=== PATIENT | male | born 1945 | race Caucasian/White ===

== ENCOUNTER 2019-10-23 08:24 | Day surgery (SDC) | payer MEDICARE, OTHER, SELFPAY ==
[2019-10-22 12:36] VITALS: BMI 23.5
--- NOTE | 2019-10-23 09:07 | P.HP_ITS ---
Same Day Surgery H&P Indication for Procedure/HPI DATE OF PROCEDURE: October 23, 2019 CHIEF COMPLAINT/INDICATIONFOR SURGICAL PROCEDURE: History of rectal cancer PREOP DIAGNOSIS: History of rectal PLANNED PROCEDRUE: Operation Date: 10/23/19 10:00 Proposed Procedures p Colonoscopy(Not Applicable) - Daniel Porter MD Medications/Allergies* Home Medications Medication Instructions Recorded Confirmed Type amlodipine 10 mg PO DAILY 10/22/19 10/22/19 History aspirin 81 mg PO DAILY 10/22/19 10/22/19 History carvedilol 6.25 mg PO BID 10/22/19 10/22/19 History citalopram 10 mg PO DAILY 10/22/19 10/22/19 History lisinopril 20 mg PO DAILY 10/22/19 10/22/19 History lovastatin 10 mg PO DAILY 10/22/19 10/22/19 History mecobal-levomefolat Ca-B6 phos 1 tab PO DAILY 10/22/19 10/22/19 History [[id number]] pentoxifylline 400 mg PO TID 10/22/19 10/22/19 History tramadol 50 mg PO DAILY 10/22/19 10/23/19 History Allergies/Adverse Reactions Allergy/AdvReac Type Severity Reaction Status Date / Time No Known Allergies Allergy Unverified 08/27/19 11:55 Pertinent Exam Findings alert, oriented x 3, clear to auscultation bilaterally, regular rate & rhythm, operative site marked and procedure specific exam findings Recommendations Surgery/Procedure today Coding Level of Care Code Acute Rehab/Pre Vocational Counselor for Breonna Leach
--- NOTE | 2019-10-23 09:14 | ANES.PREANE2 ---
Pre-Anesthetic Assessment Pre-Anesthetic Assessment: Height/Weight: Height 1.8 m Weight 76.374 kg Preop Diagnosis: History of rectal CA Proposed Procedure: Operation Date: 10/23/19 10:00 Proposed Procedures p Colonoscopy(Not Applicable) - Daniel Porter MD Was Beta Jonathan taken within 24 hours: Yes Last intake: 06:30 Last Intake: 20:00 Social: Packs per day: 1 Pack years: 60 Exam: Pre-Anes Outpt Exam: alert, oriented x 3, clear to auscultation bilaterally and regular rate & rhythm Airway: Submandibular: WNL Cervical ROM: WNL MP: 1 CV/HEM: CV/HEM: HTN Comments: rx'd x 42 2 Blocks/2 FOS without angina/IRWIN : : Chronic renal Insufficiency Comments: stage 3 Musc/skel: Musc/skel: Lower Back Pain Comments: bilateral radiculopathy Anesthetic Plan: ASA status: 3 Anesthesia: MAC Data Anesthesia Cardiac Studies: No Data to Display
[2019-10-23 10:10] VITALS: BP 144/77; PULSE 78; RESP 18; TEMP 36.4; O2SAT 98
[2019-10-23] MEDS: sodium chloride 0.9% 1,000 ML 30 ML (10:11)
[2019-10-23 10:45] VITALS: BP 109/55; PULSE 67; RESP 18; TEMP 36.6; O2SAT 99
[2019-10-23 10:53] VITALS: BP 132/76; PULSE 72; RESP 16; TEMP 36.8; O2SAT 98
== END 2019-10-23 11:20 | disposition home or self-care (01) ==
PROVIDERS: Family Provider Nurse Practitioner Family; PCP Nurse Practitioner Family; Visit Provider Internal Medicine
PROC: 0DJD8ZZ Inspection of Lower Intestinal Tract, Via Natural or Artificial Opening Endoscopic (ICD-10-PCS; CPT 45378; principal; 2019-10-23 10:00)
DX: Z85.048 Personal history of other malignant neoplasm of rectum, rectosigmoid junction, and anus (principal); F17.210 Nicotine dependence, cigarettes, uncomplicated; I10 Essential (primary) hypertension
CPT/HCPCS: 12345; 45378; J2704; J7030

== ENCOUNTER 2019-12-15 13:05 | Outpatient (CLI) | payer MEDICARE, OTHER, SELFPAY ==
[2019-12-15 17:06] LABS: Basophils % 0.6 %; Eosinophils # 0.2 10^3/uL (0.0-0.8); Eosinophils % 3.4 %; Hematocrit 32.7 % (42.0-52.0); Hemoglobin 10.7 g/dL (11.7-16.6); Lymphocytes # 1.7 10^3/uL (0.8-4.8); Lymphocytes % 24.9 %; Mean Corpuscular HGB Conc 32.7 g/dL (30.0-36.0); Mean Corpuscular Hemoglobin 34.4 pg (28.0-34.0); Mean Corpuscular Volume 105.1 fL (80-94); Mean Platelet Volume 10.1 fL (7.4-10.4); Monocytes # 0.8 10^3/uL (0.2-0.9); Monocytes % 11.8 %; Neutrophils # 4.1 10^3/uL (1.8-7.7); Neutrophils % 59.2 %; Nucleated Red Blood Cells % 0 %; Platelet Count 179 10^3/cmm (130-400); Red Blood Count 3.11 10^6/uL (4.1-5.3); Red Cell Distribution Width 13.4 % (12.1-15.1); White Blood Count 6.9 10^3/uL (4.0-10.0)
[2019-12-15 23:19] LABS: Alanine Aminotransferase 12 U/L (0-41); Albumin Level 3.9 g/dL (3.5-5.2); Alkaline Phosphatase 63 IU/L (40-130); Anion Gap 18.4 (5-19); Aspartate Amino Transferase 16 U/L (0-40); Blood Urea Nitrogen 27 mg/dL (8-23); Calcium 9.6 mg/dL (8.5-10.5); Carbon Dioxide 22 mmol/L (22-29); Chloride 106 mmol/L (98-107); Globulin 3.2 g/dL (1.3-4.6); Glucose 66 mg/dL (65-115); Osmolality Calculated 289 mOsm/kg (285-295); Potassium 4.4 mmol/L (3.5-5.1); Sodium 142 mmol/L (136-145); Total Bilirubin 0.2 mg/dL (0.15-1.2); Total Protein 7.1 g/dL (6.6-8.7)
[2019-12-16 03:06] LABS: Carcinoembryonic Antigen 1.5 ng/mL (0.0-4.7)
== END 2019-12-15 13:06 | disposition home or self-care (01) ==
LOC: ONCMED 15:53
PROVIDERS: Family Provider Nurse Practitioner Family; PCP Nurse Practitioner Family; Visit Provider Internal Medicine Medical Oncology
DX: C20 Malignant neoplasm of rectum (principal)
CPT/HCPCS: 36415; 80053; 82378; 85025

== ENCOUNTER 2020-02-09 13:23 | Outpatient (CLI) | payer MEDICARE, OTHER, SELFPAY ==
--- NOTE | 2020-02-12 18:17 | ONC FU_ITS ---
Dr. Hernandez Patient Follow-Up Note Patient: Kayode Mcqueen V Unit #: [id number]: [id number] Dicatated By: Raheem Hernandez M.D.Date of Visit:Feb 09, 2020 Onc Med Follow-up/Prog Note Chief Complaint: Rectal cancer. 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 His disease appeared to be locally advanced, at least T3 by clinical evaluation. He had presented to Dr. Porter in February 2015 for evaluation of rectal bleeding. At that time reported having blood in his stool for at least 4 months. During that time he was having increasing difficulty moving his bowels, mainly just having to strain harder to have a bowel movement. He assumed this was due to hemorrhoids, which he says had bothered him for 45 years. He underwent colonoscopy on 03/18/2015. He was noted to have a partially obstructing, large, size fungating, malignant appearing mass in the rectum. The location within the rectum was not stated, but it apparently was very low. To semi-pedunculated polyps were seen in the left colon, and both were removed endoscopically. Pathology on the polyps in the descending colon was consistent with adenomatous polyps. The rectum showed well to moderately differentiated infiltrating adenocarcinoma. He had further evaluation with CT abdomen/pelvis on 03/18/2015. It showed diffuse rectal wall thickening above and below the levator ani, with the thickness measuring up to 1.5 cm. There was associated perirectal fat stranding. he findings were felt to be consistent with rectal carcinoma with perirectal tumoral infiltration. Other considerations include ulcerative colitis or proctitis. There was a solid-appearing nodule in the retroperitoneum adjacent to the left kidney inferior pole measuring 1.7 cm. This was thought to be a possible metastatic deposit or metastatic lymph node. Other findings included bilateral renal cysts, atherosclerosis including coronary artery calcifications, and chronic emphysema. He was evaluated with PET CT on 04/09/2015. That study showed evidence of rectal carcinoma invading the surrounding fat, but with no evidence of lymph node involvement. The soft tissue nodule posterior to the lower pole of the left kidney was FDG negative. He was seen by Dr. Win Rowe on 04/20/2015. It was recommended that he proceed with neoadjuvant chemoradiation. He started radiation concurrently with Xeloda on 04/25/2015. He tolerated it well initially. However, beginning at week 3 of his treatment the Xeloda was put on hold because of a generalized erythematous skin eruption. It did appear to be more consistent with a hypersensitivity reaction as opposed to Xeloda skin toxicity. It did not improve, though, with stopping his other medications, including lisinopril. The skin eruption did show improvement on prednisone, and we did have him try going back on the Xeloda. However, he had recurrence of generalized erythematous rash, and at that point I did stop the chemotherapy. He completed radiation on 06/02/2015 to a total dose of 5040 cGy. He underwent low anterior resection with placement of diverting loop ileostomy on 07/19/2015. Pathology showed residual invasive moderately differentiated adenocarcinoma measuring 3.0 cm in greatest dimension. There was invasion through the muscularis propria into the perirectal soft tissues but not extending to the serosal surface. The tumor was 0.5 cm in the distal and radial soft tissue resection margins. There was no involvement in 7 lymph nodes. As such his disease post treatment is stage IIA (ypT3, ypN0, M0). He was given postoperative adjuvant chemotherapy with modified FOLFOX. He started cycle 1 on 09/20/2015. It was complicated by severe neutropenia with a penelope granulocyte count of 800. He required a treatment delay and dose reductions with his second cycle. The third cycle was administered with no delay on 11-08, but he he was given Neulasta with it. He has since then had ongoing problems with myelosuppression, including neutropenia and anemia. He has had additional treatment delays because of the low blood counts. He has otherwise tolerated the chemotherapy pretty well. He completed his 8th cycle of treatment on 01/25/2016. He underwent ostomy reversal on 03/06/2016. He had a surveillance colonoscopy in July 2016 or August 2016. His other medical illnesses include hypertension, hyperlipidemia, chronic kidney disease, and degenerative arthritis. He also has COPD, and he has a history of smoking 1 pack of cigarettes daily for somewhere in the range of 50 years. INTERIM HISTORY: Surveillance CT scans of the chest, abdomen, and pelvis on 03/05/2018 showed a new spiculated 1 cm groundglass lesion within the posterior segment of the right upper lobe, suspicious for primary lung neoplasm. Scattered top normal size middle mediastinal lymph nodes were noted and there was borderline enlarged subcarinal lymph node measuring up to 1 cm in greatest diameter. There was no obvious hilar adenopathy noted. The abdomen/pelvis showed a nonspecific 1.5 cm solid-appearing nodules in the left perirenal space. The liver and adrenal glands appeared unremarkable and there is no abdominal pelvic lymphadenopathy by size criteria. The study was limited due to lack of IV contrast. Further evaluation with PET/CT on 03/15/2018 showed an FDG negative pulmonary nodule in the right upper lobe measuring 1 cm. It was felt to have low likelihood of malignancy. There were no other areas of abnormal uptake on that study. Given the findings, he continued on observation/expectant. Repeat chest CT on 05/09/2018 showed suspicious but stable 1 cm spiculated pulmonary nodule in the right upper lobe. Also noted was stable borderline mediastinal lymphadenopathy. His surveillance chest CT on 08/29/2018 showed a slight increase in the posterior segment right upper lobe nodule, measuring 1.3 cm. There were stable pattern of several borderline enlarged middle mediastinal lymph nodes on both sides measuring up to 1.1 cm in maximum diameter. Low-grade subcarinal lymphadenopathy measuring 1.3 cm also appeared stable. Calcified hilar lymph nodes were present bilaterally. Surveillance CT scans of the chest on 11/27/2018 showed stable appearance of the irregular right upper lobe pulmonary nodule measuring 1.1 cm. There were no new pulmonary nodules noted. An enlarged subcarinal lymph node also appeared stable measuring 1.[address] scans on 06/15/2019 showed stable right upper lobe pulmonary nodule measuring 12 mm. Mildly enlarged mediastinal lymph nodes also appeared stable. There was no evidence of recurrent or metastatic disease in the abdomen/pelvis. With those findings, he continued on observation/expectant management. His surveillance colonoscopy on 10/23/2019 showed no abnormalities. He is seen for a scheduled visit. He indicates that he does not have too much ambition, but he is able to do light work. His ECOG score is 1. Appetite is been okay. His weight is stable. He has no fever or night sweats. He has shortness of breath with exertion. He does not have resting dyspnea, cough, or chest pain. He sometimes has constipation, but he has not had any diarrhea. He has no other GI or complaints. He has been having pain in his back and legs. He has had a previous left total knee replacement, and now his right knee is bothering him more. He has been managing the pain with tramadol. He does not complain of headache or dizziness. He has having some numbness in the tips of the lateral 3 fingers of his left hand. He also complains that his feet tingle. Medications: AmLODIPine Besylate 1 (10 mg) Tablet Oral daily, Coreg 1 (6.25 mg) Tablet Oral b.i.d., flotanx Tablet Take as Directed, HydrOXYzine HCl 1 (25 mg) Tablet Oral b.i.d. PRN, Lisinopril 1 (20 mg) Tablet Oral daily PRN, Lovastatin 1 (10 mg) Tablet Oral daily, TraMADol HCl 1 (50 mg) Tablet Oral t.i.d. PRN, TRENtal 1 (400 mg) Tablet, controlled release Oral t.i.d. Allergies: No Known Allergies. Review of Systems: Constitutional - His energy is okay, but he says he is not too ambitious. He does some light work. His appetite is good and weight is up a few pounds. No fever, night sweats, or hot flashes. ECOG score is 1, ENMT - He has some congestion in the mornings. No mouth sores. No sore throat or difficulty swallowing, Hematologic/Lymphatic - He bruises easily, Respiratory - He gets short of breath with exertion. No cough. No pleuritic pain or hemoptysis, Cardiovascular - No angina pain. No palpitations, Gastrointestinal - No nausea or vomiting. No heartburn or acid reflux. No diarrhea. He has some occasional mild constipation that is adequately managed with an over the counter laxative. No blood in the stool or black stools. He had a colonoscopy in September of this year, Genitourinary (M) - No dysuria or hematuria. No urinary frequency. No urgency or incontinence, Musculoskeletal - He is having pain in his lower back and in his legs. He also has pain in his right knee. He is taking tramadol for it, Integumentary - No skin complications, Neurologic - No headache or dizziness. He has some numbness and tingling in his left hand, mainly in his middle, ring and pinky finger. No other focal neurologic symptoms, Psychiatric - He denies any recent anxiety, but states he has hydroxyzine to take as needed for symptoms. He has some mild depression. No insomnia. Vital Signs: Performed on Feb 09, 2020 13:27 Height - 71.00 in Weight - 170 lbs (HIGH) BSA - 1.97 sq.m BMI - 23.71 Temperature - 97.9 F (LOW) Pulse - 73 /min Respiration - 18 /min BP - 150/74 mm(hg) (HIGH) O2 Sat - 97 % Pain - 3 Physical Examination: Constitutional - He looks pretty good generally, Eyes - Sclerae nonicteric. Conjunctivae clear, ENMT - No lesions noted in the oral cavity, Hematologic/Lymphatic - No cervical, clavicular, or axillary adenopathy, Respiratory - Lungs are clear with diminished air movement bilaterally, Cardiovascular - Heart rhythm is regular. There is no murmur, gallop, or rub noted, Abdomen - Soft. Liver and spleen are not enlarged. There is no abdominal mass or ascites noted and there is no inguinal adenopathy, Extremities - No edema. Dorsalis pedis pulses are palpable bilaterally, Neurologic - No focal neurologic deficits noted. Lab/Imaging: Test performed on Dec 15, 2019 13:05 Sodium 142 mmol/L Potassium 4.4 mmol/L Chloride 106 mmol/L CO2 22 mmol/L Anion Gap 18.4 BUN 27 mg/dL Creatinine 1.1 mg/dL Cr Clearance (Est) 66.7900 mL/min Glucose 66 mg/dL Calcium 9.6 mg/dL Protein, Total 7.1 g/dL Albumin 3.9 g/dL Globulin 3.2 g/dL Bilirubin, Total 0.2 mg/dL ALT (SGPT) 12 U/L AST (SGOT) 16 U/L Alkaline Phosphatase 63 IU/L WBC 6.9 10 3/uL RBC 3.11 10 6/uL HGB 10.7 g/dL HCT 32.7 % MCV 105.1 fL MCH 34.4 pg MCHC 32.7 g/dL RDW 13.4 % Platelet Count 179 10 3/cmm MPV 10.1 fL Neutrophils 4.1 10 3/uL Lymphocytes 1.7 10 3/uL Monocytes 0.8 10 3/uL Eosinophils 0.2 10 3/uL Basophils 0.0 10 3/uL Neutrophil % 59.2 % Lymphocyte % 24.9 % Monocyte % 11.8 % Eosinophil % 3.4 % Basophils % 0.6 % CEA 1.5 ng/mL Impression: 1. The patiet with well to moderately differentiated adenocarcinoma of the low rectum, at least T3, Nx, at initial diagnosis in February 2015. There was no evidence of ymph node involement or other metastatic disease by PET/CT. 2. He underwent chemoradiation utilizing Xeloda for chemosensitization. He developed a generalized skin eruption, which appeared most consistent with a medication hypersensitivity. However, it persisted after stopping medications, including lisinopril. It did improve on prednisone, but recurred when he went back on the Xeloda, and ultimately I did have to stop it. 3. He completed radiation on 06/02/2015 to a total dose of 5040 cGy. 4. He underwent low anterior resection with placement of diverting ileostomy on 07/19/2015. Pathology showed residual invasive moderately differentiated adenocarcinoma measuring 3.0 cm in greatest dimension. There was invasion through the muscularis into perirectal soft tissues, but not extending to the serosal surface. There was no involvement in 7 lymph nodes, thus posttreatment stage IIA (ypT3, ypN0, M0). 5. He was given postoperative adjuvant chemotherapy with modified FOLFOX. He had significant myelosuppression with the chemotherapy, requiring dose reductions and delays. He completed 8 cycles of treatment as of 01/25/2016. He underwent ostomy reversal on 03/06/2016. His other medical illnesses include: 6. Hypertension. 7. Hyperlipidemia. 8. Chronic kidney disease. 9. COPD. 10. Degenerative arthritis. He has been followed on observation following completion of his treatment. His overall clinical status has remained stable. His surveillance CT scans in February 2018 showed evidence of a new spiculated pulmonary nodule in the right upper lobe, suspicious for primary lung malignancy. The 1.5 cm nodule in the perirenal area has been noted on previous studies and appeared stable. On further evaluation with PET/CT, the pulmonary nodule was FDG negative, indicating low likelihood of malignancy. Given those findings, he continued on observation/expectant management. His repeat chest CT scan showed stable right upper lobe pulmonary nodule measuring 1 cm, but on a follow-up study in August 2018 it had increased slightly in size, to 1.3 cm. On a follow-up study in November 2018 the pulmonary nodule remained stable at 1.3 cm, and the subcarinal lymph node also appeared stable. His repeat CT in May 2019 showed stable findings. He continued on observation/expectant management. His surveillance colonoscopy in September 2019 showed no abnormalities. Overall, he has been doing pretty well clinically. He has had emotional distress due to his daughter having with cancer and his having to be treated for cancer. He otherwise appears stable. Thus far there is been no evidence of recurrence of the rectal cancer. Plan: He remains on observation/expectant management for the rectal cancer. He will be scheduled for a follow-up visit in 6 months. He will have surveillance CT scans with that visit. Signed By: Raheem Hernandez M.D. <<Signature on File>>
== END 2020-02-09 13:24 | disposition home or self-care (01) ==
LOC: ONCMED 13:23
PROVIDERS: PCP Nurse Practitioner Family; Visit Provider Internal Medicine Medical Oncology
DX: Z08 Encounter for follow-up examination after completed treatment for malignant neoplasm (principal); Z85.048 Personal history of other malignant neoplasm of rectum, rectosigmoid junction, and anus; Z63.79 Other stressful life events affecting family and household; I12.9 Hypertensive chronic kidney disease with stage 1 through stage 4 chronic kidney disease, or unspecified chronic kidney disease; N18.9 Chronic kidney disease, unspecified; E78.5 Hyperlipidemia, unspecified; J44.9 Chronic obstructive pulmonary disease, unspecified; M19.90 Unspecified osteoarthritis, unspecified site; Z92.21 Personal history of antineoplastic chemotherapy; Z92.3 Personal history of irradiation; Z90.49 Acquired absence of other specified parts of digestive tract
CPT/HCPCS: G0463

== ENCOUNTER → 2020-02-19 09:40 | Outpatient (BNVA) | payer MEDICARE, OTHER, SELFPAY | PROVIDERS: PCP Nurse Practitioner Family; Visit Provider Nurse Practitioner Family | DX: I10 Essential (primary) hypertension (principal); E55.9 Vitamin D deficiency, unspecified; E53.8 Deficiency of other specified B group vitamins; E78.5 Hyperlipidemia, unspecified; Z79.899 Other long term (current) drug therapy; M54.9 Dorsalgia, unspecified | CPT/HCPCS: 36415; 80061; 82306; 82607; 82746; 83036; 84443 ==

== ENCOUNTER 2020-08-09 12:37 | Outpatient (CLI) | payer MEDICARE, OTHER, SELFPAY ==
--- NOTE | 2020-08-12 16:05 | ONC FU_ITS ---
Dr. Hernandez Patient Follow-Up Note Patient: Kayode Mcqueen V Unit #: [id number]: 1945 Dicatated By: Raheem Hernandez M.D.Date of Visit:Aug 09, 2020 Onc Med Follow-up/Prog Note Chief Complaint: Rectal cancer. 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 His disease appeared to be locally advanced, at least T3 by clinical evaluation. He had presented to Dr. Porter in February 2015 for evaluation of rectal bleeding. At that time reported having blood in his stool for at least 4 months. During that time he was having increasing difficulty moving his bowels, mainly just having to strain harder to have a bowel movement. He assumed this was due to hemorrhoids, which he says had bothered him for 45 years. He underwent colonoscopy on 03/18/2015. He was noted to have a partially obstructing, large, size fungating, malignant appearing mass in the rectum. The location within the rectum was not stated, but it apparently was very low. To semi-pedunculated polyps were seen in the left colon, and both were removed endoscopically. Pathology on the polyps in the descending colon was consistent with adenomatous polyps. The rectum showed well to moderately differentiated infiltrating adenocarcinoma. He had further evaluation with CT abdomen/pelvis on 03/18/2015. It showed diffuse rectal wall thickening above and below the levator ani, with the thickness measuring up to 1.5 cm. There was associated perirectal fat stranding. he findings were felt to be consistent with rectal carcinoma with perirectal tumoral infiltration. Other considerations include ulcerative colitis or proctitis. There was a solid-appearing nodule in the retroperitoneum adjacent to the left kidney inferior pole measuring 1.7 cm. This was thought to be a possible metastatic deposit or metastatic lymph node. Other findings included bilateral renal cysts, atherosclerosis including coronary artery calcifications, and chronic emphysema. He was evaluated with PET CT on 04/09/2015. That study showed evidence of rectal carcinoma invading the surrounding fat, but with no evidence of lymph node involvement. The soft tissue nodule posterior to the lower pole of the left kidney was FDG negative. He was seen by Dr. Win Rowe on 04/20/2015. It was recommended that he proceed with neoadjuvant chemoradiation. He started radiation concurrently with Xeloda on 04/25/2015. He tolerated it well initially. However, beginning at week 3 of his treatment the Xeloda was put on hold because of a generalized erythematous skin eruption. It did appear to be more consistent with a hypersensitivity reaction as opposed to Xeloda skin toxicity. It did not improve, though, with stopping his other medications, including lisinopril. The skin eruption did show improvement on prednisone, and we did have him try going back on the Xeloda. However, he had recurrence of generalized erythematous rash, and at that point I did stop the chemotherapy. He completed radiation on 06/02/2015 to a total dose of 5040 cGy. He underwent low anterior resection with placement of diverting loop ileostomy on 07/19/2015. Pathology showed residual invasive moderately differentiated adenocarcinoma measuring 3.0 cm in greatest dimension. There was invasion through the muscularis propria into the perirectal soft tissues but not extending to the serosal surface. The tumor was 0.5 cm in the distal and radial soft tissue resection margins. There was no involvement in 7 lymph nodes. As such his disease post treatment is stage IIA (ypT3, ypN0, M0). He was given postoperative adjuvant chemotherapy with modified FOLFOX. He started cycle 1 on 09/20/2015. It was complicated by severe neutropenia with a penelope granulocyte count of 800. He required a treatment delay and dose reductions with his second cycle. The third cycle was administered with no delay on 11-08, but he he was given Neulasta with it. He has since then had ongoing problems with myelosuppression, including neutropenia and anemia. He has had additional treatment delays because of the low blood counts. He has otherwise tolerated the chemotherapy pretty well. He completed his 8th cycle of treatment on 01/25/2016. He underwent ostomy reversal on 03/06/2016. He had a surveillance colonoscopy in July 2016 or August 2016. His other medical illnesses include hypertension, hyperlipidemia, chronic kidney disease, and degenerative arthritis. He also has COPD, and he has a history of smoking 1 pack of cigarettes daily for somewhere in the range of 50 years. INTERIM HISTORY: Surveillance CT scans of the chest, abdomen, and pelvis on 03/05/2018 showed a new spiculated 1 cm groundglass lesion within the posterior segment of the right upper lobe, suspicious for primary lung neoplasm. Scattered top normal size middle mediastinal lymph nodes were noted and there was borderline enlarged subcarinal lymph node measuring up to 1 cm in greatest diameter. There was no obvious hilar adenopathy noted. The abdomen/pelvis showed a nonspecific 1.5 cm solid-appearing nodules in the left perirenal space. The liver and adrenal glands appeared unremarkable and there is no abdominal pelvic lymphadenopathy by size criteria. The study was limited due to lack of IV contrast. Further evaluation with PET/CT on 03/15/2018 showed an FDG negative pulmonary nodule in the right upper lobe measuring 1 cm. It was felt to have low likelihood of malignancy. There were no other areas of abnormal uptake on that study. Given the findings, he continued on observation/expectant. Repeat chest CT on 05/09/2018 showed suspicious but stable 1 cm spiculated pulmonary nodule in the right upper lobe. Also noted was stable borderline mediastinal lymphadenopathy. His surveillance chest CT on 08/29/2018 showed a slight increase in the posterior segment right upper lobe nodule, measuring 1.3 cm. There were stable pattern of several borderline enlarged middle mediastinal lymph nodes on both sides measuring up to 1.1 cm in maximum diameter. Low-grade subcarinal lymphadenopathy measuring 1.3 cm also appeared stable. Calcified hilar lymph nodes were present bilaterally. Surveillance CT scans of the chest on 11/27/2018 showed stable appearance of the irregular right upper lobe pulmonary nodule measuring 1.1 cm. There were no new pulmonary nodules noted. An enlarged subcarinal lymph node also appeared stable measuring 1.[address] scans on 06/15/2019 showed stable right upper lobe pulmonary nodule measuring 12 mm. Mildly enlarged mediastinal lymph nodes also appeared stable. There was no evidence of recurrent or metastatic disease in the abdomen/pelvis. With those findings, he continued on observation/expectant management. His surveillance colonoscopy on 10/23/[address] showed no abnormalities. Surveillance CT scans of the chest, abdomen, and pelvis on 08/04/2020 showed no change in the spiculated nodule just anterior to the major interlobar fissure in the upper lobe of the right lung. It measured 1.0 x 0.8 cm. Irregular opacities at the lung apices appeared consistent with scarring. Overall there was no evidence of recurrent neoplasm or significant interval change. He is seen for a scheduled visit. He still complains that he has no energy. He is able to do light work at home. His ECOG score is 1. Appetite is good. He has no fever or night sweats. His main complaint is that the neuropathy in his feet has been getting worse. He also reports having a painful spot on the bottom of both feet. The right is worse than the left. He has shortness of breath and he has a smoker's cough. He does not complain of chest pain. He has continued to fluctuate between diarrhea and constipation since his surgery. He also has chronic pain in his lower back and hips. He sees Dr. Keane at pain clinic for it. Medications: AmLODIPine Besylate 1 (10 mg) Tablet Oral daily, Coreg 1 (6.25 mg) Tablet Oral b.i.d., flotanx Tablet Take as Directed, HydrOXYzine HCl 1 (25 mg) Tablet Oral b.i.d. PRN, Lisinopril 1 (20 mg) Tablet Oral daily PRN, Lovastatin 1 (10 mg) Tablet Oral daily, TraMADol HCl 1 (50 mg) Tablet Oral t.i.d. PRN, TRENtal 1 (400 mg) Tablet, controlled release Oral t.i.d. Allergies: No Known Allergies. Review of Systems: Constitutional - He complains that he has no energy. He is doing some light work at home. Appetite is good and weight is stable. No fever or night sweats. ECOG score is 1, ENMT - He has a little bit of sinusdrainage. No mouth sores. No sore throat or difficulty swallowing, Hematologic/Lymphatic - No abnormal bruising or bleeding, Respiratory - He has shortness of breath with exertion. He has a smoker's cough. No pleuritic pain or hemoptysis, Cardiovascular - No angina pain. No palpitations, Gastrointestinal - No nausea or vomiting. No heartburn or acid reflux. His bowels fluctuate between diarrhea and constipation. No blood in the stool or black stools, Genitourinary (M) - No dysuria or hematuria. No urinary frequency. No urgency or incontinence, Musculoskeletal - He has pain in the lower back and both hips, Integumentary - No skin rash, Neurologic - No headache. He has occasional orthostatic dizziness. He has neuropathy in his feet, which she feels is getting worse. He has developed pain in the balls of both feet, right worse than left, Psychiatric - He has some anxiety/depression. No insomnia. Vital Signs: Performed on Aug 09, 2020 12:36 Height - 71.00 in Weight - 169 lbs (LOW) BSA - 1.96 sq.m BMI - 23.57 Temperature - 98.7 F Pulse - 81 /min Respiration - 17 /min BP - 146/70 mm(hg) (HIGH) O2 Sat - 97 % Pain - 3 Physical Examination: Constitutional - He looks pretty good generally, Eyes - Sclerae nonicteric. Conjunctivae clear, ENMT - No lesions noted in the oral cavity, Hematologic/Lymphatic - No cervical, clavicular, or axillary adenopathy, Respiratory - Lungs are clear with diminished air movement bilaterally, Cardiovascular - Heart rhythm is regular. There is no murmur, gallop, or rub noted, Abdomen - Soft. Liver and spleen are not enlarged. There is no abdominal mass or ascites noted and there is no inguinal adenopathy, Extremities - No edema, Neurologic - No focal neurologic deficits noted. Impression: 1. The patiet with well to moderately differentiated adenocarcinoma of the low rectum, at least T3, Nx, at initial diagnosis in February 2015. There was no evidence of ymph node involement or other metastatic disease by PET/CT. 2. He underwent chemoradiation utilizing Xeloda for chemosensitization. He developed a generalized skin eruption, which appeared most consistent with a medication hypersensitivity. However, it persisted after stopping medications, including lisinopril. It did improve on prednisone, but recurred when he went back on the Xeloda, and ultimately I did have to stop it. 3. He completed radiation on 06/02/2015 to a total dose of 5040 cGy. 4. He underwent low anterior resection with placement of diverting ileostomy on 07/19/2015. Pathology showed residual invasive moderately differentiated adenocarcinoma measuring 3.0 cm in greatest dimension. There was invasion through the muscularis into perirectal soft tissues, but not extending to the serosal surface. There was no involvement in 7 lymph nodes, thus posttreatment stage IIA (ypT3, ypN0, M0). 5. He was given postoperative adjuvant chemotherapy with modified FOLFOX. He had significant myelosuppression with the chemotherapy, requiring dose reductions and delays. He completed 8 cycles of treatment as of 01/25/2016. He underwent ostomy reversal on 03/06/2016. His other medical illnesses include: 6. Hypertension. 7. Hyperlipidemia. 8. Chronic kidney disease. 9. COPD. 10. Degenerative arthritis. He has been followed on observation following completion of his treatment. His overall clinical status has remained stable. His surveillance CT scans in February 2018 showed evidence of a new spiculated pulmonary nodule in the right upper lobe, suspicious for primary lung malignancy. The 1.5 cm nodule in the perirenal area has been noted on previous studies and appeared stable. On further evaluation with PET/CT, the pulmonary nodule was FDG negative, indicating low likelihood of malignancy. Given those findings, he continued on observation/expectant management. His repeat chest CT scan showed stable right upper lobe pulmonary nodule measuring 1 cm, but on a follow-up study in August 2018 it had increased slightly in size, to 1.3 cm. On a follow-up study in November 2018 the pulmonary nodule remained stable at 1.3 cm, and the subcarinal lymph node also appeared stable. His repeat CT in May 2019 showed stable findings. He continued on observation/expectant management. His surveillance colonoscopy in September 2019 showed no abnormalities. At this point he continues to have fatigue. He has chronic pain in the lower back and hips. He reports having increased neuropathy in his feet. His surveillance CT scans, though, show no change in the right upper lobe pulmonary nodule and no other evidence for recurrent or metastatic disease. Plan: He remains on observation/expectant management for the rectal cancer. He will be scheduled for a follow-up visit in 1 year. Signed By: Raheem Hernandez M.D. <<Signature on File>>
== END 2020-08-09 12:38 | disposition home or self-care (01) ==
LOC: ONCMED 12:38
PROVIDERS: PCP Nurse Practitioner Family; Visit Provider Internal Medicine Medical Oncology
DX: Z08 Encounter for follow-up examination after completed treatment for malignant neoplasm (principal); Z85.048 Personal history of other malignant neoplasm of rectum, rectosigmoid junction, and anus; G89.29 Other chronic pain; M54.5 Low back pain; R91.1 Solitary pulmonary nodule; Z92.3 Personal history of irradiation; Z92.21 Personal history of antineoplastic chemotherapy; I12.9 Hypertensive chronic kidney disease with stage 1 through stage 4 chronic kidney disease, or unspecified chronic kidney disease; N18.9 Chronic kidney disease, unspecified; E78.5 Hyperlipidemia, unspecified; J44.9 Chronic obstructive pulmonary disease, unspecified; M19.90 Unspecified osteoarthritis, unspecified site; Z90.49 Acquired absence of other specified parts of digestive tract
CPT/HCPCS: G0463

== ENCOUNTER → 2021-02-08 11:42 | Outpatient (BNVA) | payer MEDICARE, OTHER, SELFPAY | PROVIDERS: PCP Nurse Practitioner Family; Visit Provider Nurse Practitioner Family | DX: E53.8 Deficiency of other specified B group vitamins (principal); I10 Essential (primary) hypertension; E78.5 Hyperlipidemia, unspecified; M19.90 Unspecified osteoarthritis, unspecified site; E55.9 Vitamin D deficiency, unspecified; Z79.899 Other long term (current) drug therapy | CPT/HCPCS: 36415; 80053; 80061; 81003; 82306; 82607; 83036; 84443; 85025 ==

== ENCOUNTER 2021-07-28 09:53 | Outpatient (CLI) | payer MEDICARE, OTHER, SELFPAY ==
--- NOTE | 2021-07-28 10:20 | CT_ITS ---
WS: [id number] CT scan of the chest Without IV contrast, CT scan of the abdomen and pelvis without IV contrast and with oral contrast. Additional two-dimensional coronal and sagittal reconstruction was performed. Clinical Data: PULMONARY NODULE, RECTAL CANCER, ANEMIA Comparison: CT chest, 08/29/2018, CT abdomen and pelvis, 06/12/2020. DLP: 2046.[address] scans at [facility] use at least one of these dose optimization techniques: automated e xposure control; mA and/or kV adjustment per patient size (includes targeted exams where dose is matc hed to clinical indication); or iterative reconstruction. Findings: Chest: The right upper lobe nodule seen best on axial image 20 of 75 has not changed. No other nodules are s een. There are no masses or effusions. The heart size is normal with no pericardial effusion. There is coronary artery calcification. No pne umonia or pneumothorax is present. The pulmonary arterial system and thoracic aorta demonstrate no dilatations. There is calcification o f the arch of the aorta and the descending thoracic aortic wall. There is no axillary adenopathy or change in the mediastinal adenopathy. 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 Abdomen/pelvis: The liver, gallbladder, spleen, adrenal glands and pancreas are normal. The kidneys show bilateral renal cysts. No renal masses or hydronephrosis can be seen. There are shahla l vascular calcifications but no intrarenal calcifications. A 1.6 cm nodule adjacent to the left kidn ey shows no change. The abdominal aorta is normal in size with calcification in the wall. No appendicitis or diverticulitis is seen. The stomach, small bowel and colon are not remarkable. No abscess, adenopathy, ascites, mass, obstruction or free air is seen. There is a small fat-containing umbilical hernia. The bladder is full, and the prostate is enlarged.. No inguinal hernia is seen. The bones of the lumbar spine, pelvis, and hips show osteoarthritis of the lumbar vertebral bodies an d hips with no metastatic lesions. CT/CT chest abd pel wo con Impression: 1. Right upper lobe nodule unchanged. 2. Negative for acute cardiopulmonary disease. 3. Negative for acute intra-abdominal and pelvic abnormalities.
== END 2021-07-28 09:54 | disposition home or self-care (01) ==
PROVIDERS: PCP Nurse Practitioner Family; Visit Provider Internal Medicine Medical Oncology
DX: C20 Malignant neoplasm of rectum (principal); R91.1 Solitary pulmonary nodule; D64.9 Anemia, unspecified
CPT/HCPCS: 71250; 74176

== ENCOUNTER 2021-08-28 14:50 | Outpatient (CLI) | payer MEDICARE, OTHER, SELFPAY ==
[2021-08-28 15:33] LABS: Basophils % 0.6 %; Eosinophils # 0.2 10^3/uL (0.0-0.8); Eosinophils % 4.3 %; Hemoglobin 11.3 g/dL (11.7-16.6); Lymphocytes # 1.4 10^3/uL (0.8-4.8); Lymphocytes % 27.5 %; Mean Corpuscular HGB Conc 34.2 g/dL (30.0-36.0); Mean Corpuscular Hemoglobin 35.6 pg (28.0-34.0); Mean Corpuscular Volume 104.1 fl (80-94); Mean Platelet Volume 9.6 fL (7.4-10.4); Monocytes # 0.5 10^3/uL (0.2-0.9); Neutrophils # 2.82 10^3/uL (1.8-7.7); Neutrophils % 57.4 %; Nucleated Red Blood Cells % 0 %; Platelet Count 175 10^3/cmm (130-400); Red Blood Count 3.17 10^6/uL (4.1-5.3); Red Cell Distribution Width 13.2 % (12.1-15.1); White Blood Count 4.9 10^3/uL (4.0-10.0)
[2021-08-28 16:01] LABS: Carcinoembryonic Antigen 1.5 ng/mL (0.0-4.7)
[2021-08-28 16:12] LABS: Alanine Aminotransferase 15 U/L (0-41); Albumin Level 3.9 g/dL (3.5-5.2); Alkaline Phosphatase 61 IU/L (40-130); Anion Gap 15.9 (5-19); Aspartate Amino Transferase 14 U/L (0-40); Blood Urea Nitrogen 40 mg/dL (8-23); Calcium 8.7 mg/dL (8.5-10.5); Carbon Dioxide 20 mmol/L (22-29); Chloride 104 mmol/L (98-107); Globulin 3.5 g/dL (1.3-4.6); Glucose 97 mg/dL (65-115); Osmolality Calculated 290 mOsm/kg (285-295); Potassium 4.9 mmol/L (3.5-5.1); Sodium 135 mmol/L (136-145); Total Bilirubin 0.2 mg/dL (0.15-1.2); Total Protein 7.4 g/dL (6.6-8.7)
--- NOTE | 2021-08-29 07:37 | ONC FU_ITS ---
Dr. Hernandez Patient Follow-Up Note Patient: Kayode Mcqueen V Unit #: [id number]: 1945 Dicatated By: Raheem Hernandez M.D.Date of Visit:Aug 28, 2021 Onc Med Follow-up/Prog Note Chief Complaint: Rectal cancer. 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 His disease appeared to be locally advanced, at least T3 by clinical evaluation. He had presented to Dr. Porter in February 2015 for evaluation of rectal bleeding. At that time reported having blood in his stool for at least 4 months. During that time he was having increasing difficulty moving his bowels, mainly just having to strain harder to have a bowel movement. He assumed this was due to hemorrhoids, which he says had bothered him for 45 years. He underwent colonoscopy on 03/18/2015. He was noted to have a partially obstructing, large, size fungating, malignant appearing mass in the rectum. The location within the rectum was not stated, but it apparently was very low. To semi-pedunculated polyps were seen in the left colon, and both were removed endoscopically. Pathology on the polyps in the descending colon was consistent with adenomatous polyps. The rectum showed well to moderately differentiated infiltrating adenocarcinoma. He had further evaluation with CT abdomen/pelvis on 03/18/2015. It showed diffuse rectal wall thickening above and below the levator ani, with the thickness measuring up to 1.5 cm. There was associated perirectal fat stranding. he findings were felt to be consistent with rectal carcinoma with perirectal tumoral infiltration. Other considerations include ulcerative colitis or proctitis. There was a solid-appearing nodule in the retroperitoneum adjacent to the left kidney inferior pole measuring 1.7 cm. This was thought to be a possible metastatic deposit or metastatic lymph node. Other findings included bilateral renal cysts, atherosclerosis including coronary artery calcifications, and chronic emphysema. He was evaluated with PET CT on 04/09/2015. That study showed evidence of rectal carcinoma invading the surrounding fat, but with no evidence of lymph node involvement. The soft tissue nodule posterior to the lower pole of the left kidney was FDG negative. He was seen by Dr. Win Rowe on 04/20/2015. It was recommended that he proceed with neoadjuvant chemoradiation. He started radiation concurrently with Xeloda on 04/25/2015. He tolerated it well initially. However, beginning at week 3 of his treatment the Xeloda was put on hold because of a generalized erythematous skin eruption. It did appear to be more consistent with a hypersensitivity reaction as opposed to Xeloda skin toxicity. It did not improve, though, with stopping his other medications, including lisinopril. The skin eruption did show improvement on prednisone, and we did have him try going back on the Xeloda. However, he had recurrence of generalized erythematous rash, and at that point I did stop the chemotherapy. He completed radiation on 06/02/2015 to a total dose of 5040 cGy. He underwent low anterior resection with placement of diverting loop ileostomy on 07/19/2015. Pathology showed residual invasive moderately differentiated adenocarcinoma measuring 3.0 cm in greatest dimension. There was invasion through the muscularis propria into the perirectal soft tissues but not extending to the serosal surface. The tumor was 0.5 cm in the distal and radial soft tissue resection margins. There was no involvement in 7 lymph nodes. As such his disease post treatment is stage IIA (ypT3, ypN0, M0). He was given postoperative adjuvant chemotherapy with modified FOLFOX. He started cycle 1 on 09/20/2015. It was complicated by severe neutropenia with a penelope granulocyte count of 800. He required a treatment delay and dose reductions with his second cycle. The third cycle was administered with no delay on 11-08, but he he was given Neulasta with it. He has since then had ongoing problems with myelosuppression, including neutropenia and anemia. He has had additional treatment delays because of the low blood counts. He has otherwise tolerated the chemotherapy pretty well. He completed his 8th cycle of treatment on 01/25/2016. He underwent ostomy reversal on 03/06/2016. He had a surveillance colonoscopy in July 2016. Surveillance CT scans of the chest, abdomen, and pelvis on 03/05/2018 showed a new spiculated 1 cm groundglass lesion within the posterior segment of the right upper lobe, suspicious for primary lung neoplasm. Scattered top normal size middle mediastinal lymph nodes were noted and there was borderline enlarged subcarinal lymph node measuring up to 1 cm in greatest diameter. There was no obvious hilar adenopathy noted. The abdomen/pelvis showed a nonspecific 1.5 cm solid-appearing nodules in the left perirenal space. The liver and adrenal glands appeared unremarkable and there is no abdominal pelvic lymphadenopathy by size criteria. The study was limited due to lack of IV contrast. Further evaluation with PET/CT on 03/15/2018 showed an FDG negative pulmonary nodule in the right upper lobe measuring 1 cm. It was felt to have low likelihood of malignancy. There were no other areas of abnormal uptake on that study. Given the findings, he continued on observation/expectant. Repeat chest CT on 05/09/2018 showed suspicious but stable 1 cm spiculated pulmonary nodule in the right upper lobe. Also noted was stable borderline mediastinal lymphadenopathy. His surveillance chest CT on 08/29/2018 showed a slight increase in the posterior segment right upper lobe nodule, measuring 1.3 cm. There were stable pattern of several borderline enlarged middle mediastinal lymph nodes on both sides measuring up to 1.1 cm in maximum diameter. Low-grade subcarinal lymphadenopathy measuring 1.3 cm also appeared stable. Calcified hilar lymph nodes were present bilaterally. Further surveillance CT scans in November and in May 2019 showed stable right upper lobe pulmonary nodule and mediastinal lymph nodes and no evidence of metastatic disease in the abdomen/pelvis. Surveillance colonoscopy on 10/23/2019 showed no abnormalities. With those findings he had continued expectant management. His other medical illnesses include hypertension, hyperlipidemia, chronic kidney disease, and degenerative arthritis. He also has COPD, and he has a history of smoking 1 pack of cigarettes daily for somewhere in the range of 50 years. INTERIM HISTORY: Surveillance CT scans of the chest, abdomen, and pelvis on 08/04/2020 showed no change in the spiculated nodule just anterior to the major interlobar fissure in the upper lobe of the right lung. It measured 1.0 x 0.8 cm. Irregular opacities at the lung apices appeared consistent with scarring. Overall there was no evidence of recurrent neoplasm or significant interval change. Surveillance CT scans on 07/28/2021 showed no change in the right upper lobe pulmonary nodule and no change in the mediastinal adenopathy. There were no acute findings in the abdomen/pelvis. He is seen for a follow-up visit. He says he has been feeling all right. He does have a lot of arthritis pain, especially in the hips and knees. He has somewhat limited activity tolerance, but he is able to do all of his housework and yard work. ECOG score is 1. He has good appetite. He has no fever or night sweats. He has some sinus drainage and he has a smoker's cough. He says his breathing could be better, but it has not gotten any worse. He does not complain of chest pain. He has occasional heartburn, depending on what he eats. Bowel function remains variable. He typically has to take a laxative about every 3 days and he sometimes has to take antidiarrhea medication for loose stools. He has no complaints. He does not have headache. He has some orthostatic lightheadedness. He has numbness in his feet and in the ulnar distribution of his left hand. Medications: AmLODIPine Besylate 1 (10 mg) Tablet Oral daily, Coreg 1 (6.25 mg) Tablet Oral b.i.d., flotanx Tablet Take as Directed, HydrOXYzine HCl 1 (25 mg) Tablet Oral b.i.d. PRN, Lisinopril 1 (20 mg) Tablet Oral daily PRN, Lovastatin 1 (10 mg) Tablet Oral daily, TraMADol HCl 1 (50 mg) Tablet Oral t.i.d. PRN, TRENtal 1 (400 mg) Tablet, controlled release Oral t.i.d. Allergies: No Known Allergies. Vital Signs: Performed on Aug 28, 2021 16:25 Height - 71.00 in Weight - 162.2 lbs (LOW) BSA - 1.93 sq.m BMI - 22.62 Temperature - 97.8 F (LOW) Pulse - 82 /min Respiration - 18 /min BP - 176/79 mm(hg) (HIGH) O2 Sat - 97 % Pain - 3 Fatigue - 5 Physical Examination: Constitutional - He looks pretty good generally, Eyes - Sclerae nonicteric. Conjunctivae clear, ENMT - No lesions noted in the oral cavity, Hematologic/Lymphatic - No cervical, clavicular, or axillary adenopathy, Respiratory - Lungs sound clear with diminished air movement bilaterally, Cardiovascular - Heart rhythm is regular. There is no murmur, gallop, or rub noted, Abdomen - Soft. Liver and spleen are not enlarged. There is no abdominal mass or ascites noted and there is no inguinal adenopathy, Extremities - No edema, Neurologic - No focal neurologic deficits noted. Lab/Imaging: Test performed on Aug 28, 2021 15:22 Sodium 135 mmol/L Potassium 4.9 mmol/L Chloride 104 mmol/L CO2 20 mmol/L Anion Gap 15.9 BUN 40 mg/dL Creatinine 1.3 mg/dL Cr Clearance (Est) 49.52 mL/min Glucose 97 mg/dL Osmolality - Calculated 290 mOsm/kg Calcium 8.7 mg/dL Protein, Total 7.4 g/dL Albumin 3.9 g/dL Globulin 3.5 g/dL Bilirubin, Total 0.2 mg/dL ALT (SGPT) 15 U/L AST (SGOT) 14 U/L Alkaline Phosphatase 61 IU/L WBC 4.9 10 3/uL RBC 3.17 10 6/uL HGB 11.3 g/dL HCT 33.0 % MCV 104.1 fl MCH 35.6 pg MCHC 34.2 g/dL RDW 13.2 % Platelet Count 175 10 3/cmm MPV 9.6 fL Neutrophils 2.82 10 3/uL Lymphocytes 1.4 10 3/uL Monocytes 0.5 10 3/uL Eosinophils 0.2 10 3/uL Basophils 0.0 10 3/uL Neutrophil % 57.4 % Lymphocyte % 27.5 % Monocyte % 10.0 % Eosinophil % 4.3 % Basophils % 0.6 % NRBC % 0 % CEA 1.5 ng/mL Problem List: 1. Well to moderately differentiated adenocarcinoma of the low rectum, at least T3, Nx, at initial diagnosis in February 2015. 2. Hypertension. 3. Hyperlipidemia. 4. Chronic kidney disease. 5. COPD. 6. Degenerative arthritis. Problems Addressed with this Encounter and Plan: Patient with well to moderately differentiated adenocarcinoma of the low rectum, at least T3, Nx, at initial diagnosis in February 2015. There was no evidence of ymph node involement or other metastatic disease by PET/CT. He underwent chemoradiation utilizing Xeloda for chemosensitization. During treatment he developed a generalized skin eruption, which appeared most consistent with a medication hypersensitivity. However, it persisted after stopping medications, including lisinopril. It did improve on prednisone, but recurred when he went back on the Xeloda, and ultimately I did have to stop it. He completed radiation on 06/02/2015 to a total dose of 5040 cGy. He underwent low anterior resection with placement of diverting ileostomy on 07/19/2015. Pathology showed residual invasive moderately differentiated adenocarcinoma measuring 3.0 cm in greatest dimension. There was invasion through the muscularis into perirectal soft tissues, but not extending to the serosal surface. There was no involvement in 7 lymph nodes, thus posttreatment stage IIA (ypT3, ypN0, M0). He was then given postoperative adjuvant chemotherapy with modified FOLFOX. He had significant myelosuppression with the chemotherapy, requiring dose reductions and delays. He completed 8 cycles of treatment as of 01/25/2016. He underwent ostomy reversal on 03/06/2016. He was followed on observation following completion of the chemotherapy. His surveillance CT scans in February 2018 showed evidence of a new spiculated pulmonary nodule in the right upper lobe, suspicious for primary lung malignancy. The 1.5 cm nodule in the perirenal area has been noted on previous studies and appeared stable. On further evaluation with PET/CT, the pulmonary nodule was FDG negative, indicating low likelihood of malignancy. Given those findings, he continued expectant management. During subsequent follow-up his further surveillance CT scans have shown no progression of the right upper lobe pulmonary nodule and no progression of the mediastinal lymph nodes. There also has been no evidence of metastatic involvement in the abdomen/pelvis. Overall, he has been stable clinically with no evidence of recurrence of the rectal cancer. As such, he continues expectant management. He will be scheduled for a follow-up visit in 1 year. Signed By: Raheem Hernandez M.D. <<Signature on File>>
== END 2021-08-28 14:51 | disposition home or self-care (01) ==
LOC: ONCMED 14:53
PROVIDERS: PCP Nurse Practitioner Family; Visit Provider Internal Medicine Medical Oncology
DX: Z08 Encounter for follow-up examination after completed treatment for malignant neoplasm (principal); Z85.048 Personal history of other malignant neoplasm of rectum, rectosigmoid junction, and anus; I10 Essential (primary) hypertension; E78.5 Hyperlipidemia, unspecified; I12.9 Hypertensive chronic kidney disease with stage 1 through stage 4 chronic kidney disease, or unspecified chronic kidney disease; N18.9 Chronic kidney disease, unspecified; J44.9 Chronic obstructive pulmonary disease, unspecified; M19.90 Unspecified osteoarthritis, unspecified site
CPT/HCPCS: 36415; 80053; 82378; 85025; 99214

== ENCOUNTER 2022-02-03 11:59 | Emergency (ER) | payer MEDICARE, OTHER, SELFPAY ==
[2022-02-03 12:18] VITALS: BP 163/64; PULSE 93; RESP 95; TEMP 36.7; O2SAT 95; BMI 21.6
--- NOTE | 2022-02-03 12:37 | ECG_ITS ---
[facility] Test Date: 2022-02-03 Pat Name: Kayode Mcuqeen Department: Room: Gender: Male Dispatch Specialist: : 1945 Requested By: Laurent Perla Order Number: [id number] Nikita MD: Roseann Branham M.D. Measurements Intervals [place] Rate: 78 P: 86 TN: 153 QRS: 80 QRSD: 88 T: 76 QT: 370 QTc: 422 Interpretive Statements SINUS RHYTHM Compared to ECG 04/17/2016 11:02:42 No significant changes Electronically Signed On 02-03-2022 19:04:17 CDT by Roseann Branham M.D. [id number] f
--- NOTE | 2022-02-03 12:38 | XRR_ITS ---
PROCEDURE INFORMATION: Exam: XR Chest Exam date and time: 02/03/2022 12:45 PM Age: 76 years old Clinical indication: Shortness of breath; TECHNIQUE: Imaging protocol: XR of the chest. Views: 1 view. COMPARISON: CT chest abdpel [id number] 07/28/2021 10:25 AM FINDINGS: Lungs: COPD morphology of the chest. Pleural spaces: Unremarkable. No pleural effusion. No pneumothorax. Heart/Mediastinum: Unremarkable. No cardiomegaly. Bones/joints: Unremarkable. XR/XR chest 1V portable [id number] IMPRESSION: COPD morphology of the chest.
--- NOTE | 2022-02-03 13:35 | ED_ITS ---
HPI - SOB/Dyspnea General: Chief Complaint: Shortness of Breath/Dyspnea Stated Complaint: chest congestion; SOB; productive cough Time Seen by Provider: 02/03/22 13:24 Source: patient and family Mode of arrival: ambulatory Limitations: no limitations History of Present Illness: HPI Narrative: This patient presents to our emergency department because of cough and congestion and feeling short of breath over the past week or so. He states he has a history of seasonal allergies and he saw his physician on Saturday who gave him a steroid shot. He states he coughs quite a bit and his reports he coughs a lot at night. Denies any chest pain or fevers. Is still a smoker and denies any history of asthma or heart disease. No history of heart failure. He states he is a little concerned about COVID as well although he is fully immunized against COVID including a booster. His spouse has not been ill. States he occasionally uses an albuterol inhaler seems to help him some temporarily. No history of thromboembolic events. He actually thinks he feels a bit better today which she attributes to sleeping better last night. MD elicited complaint: cough Associated symptoms: Reports chest congestion and cough; Deny abdominal pain, chest pain, extremity pain, fever(s), nausea, palpitations, polydipsia, polyuria or vomiting Review of Systems Const: Denies: fever(s), chills or body aches Eyes: Denies: change in vision ENMT: Denies: throat pain, odynophagia or nasal congestion Card: Denies: chest pain, palpitations, irregular heart rhythm or edema Resp: Reports: non-productive cough, wheezing and chest congestion GI: Denies: abdominal pain, nausea or vomiting : Denies: flank pain, difficulty urinating or dysuria Musc: Denies: neck pain, back pain, extremity pain or extremity swelling Skin/Breast: Denies: rash Neuro: Denies: headache(s), numbness in extremities or weakness in extremities Psych: Denies: anxiety or depression Endo: Denies: polyuria or polydipsia Jonathon/Lymph: Denies: easy bruising PFS ED PFSH: Medical History Anemia Anxiety Arthritis Back Pain Chronic constipation Colon cancer Environmental and seasonal allergies Hyperlipidemia Hypertension Irritable bowel syndrome (IBS) Medication management Osteoporosis Vitamin B 12 deficiency Vitamin D deficiency Surgical History History of colon surgery History of colostomy reversal History of hip surgery History of knee replacement Social History Smoking and tobacco status: never smoked Physical Exam Narrative: EXAM NARRATIVE: He talks without conversational dyspnea. He is alert and makes good eye contact. Const: COMMON NORMALS: no acute distress, patient oriented x3 and healthy appearing GENERAL APPEARANCE: cooperative HENMT: COMMON NORMALS: normocephalic, Normal nasal mucous membranes and turbinates present, moist oral mucous membranes and oropharynx normal HEAD & SCALP: normocephalic NOSE: Normal nasal mucous membranes and turbinates present Eye: COMMON NORMALS: Equal, round and reactive pupils present, EOMs intact bilaterally and conjunctivae normal CONJUNCTIVA: Yes conjunctivae normal PUPIL: Yes Equal, round and reactive pupils present Neck/C-Spine: COMMON NORMALS: full ROM, no JVD and No carotid bruits Chest: COMMONS NORMALS: normal inspection of the chest and normal palpation of entire chest wall Resp: COMMON NORMALS: normal respiratory effort and No use of accessory muscles EFFORT & INSPECTION: Yes able to speak in complete sentences AUSCULTATION: wheezes (Faint expiratory wheezes at bases bilaterally.) expiratory wheezes Cardio: COMMON NORMALS: no JVD, regular rate, regular rhythm, No murmurs present (Cardio) and Peripheral pulses 2+ throughout RATE: regular rate RHYTHM: regular rhythm PERIPHERAL PULSES: Peripheral pulses 2+ throughout GI: COMMON NORMALS: Normal to inspection, nondistended, normoactive bowel sounds present, Soft to palpation and non-tender PALPATION: Yes Soft to palpation : COMMON NORMALS: Yes no CVA tenderness BLADDER/KIDNEY EXAM: Yes no CVA tenderness Back/Pelvis: COMMON NORMALS: no CVA tenderness, thoracic and lumbar spine normal to inspection and no thoracic nor lumbar tenderness Extremity: COMMON NORMALS: normal to inspection, full ROM, capillary refill normal, no calf tenderness and no pedal edema Neuro: COMMON NORMALS: patient oriented x3, moves all extremities, no focal motor deficits and no sensory deficits noted Psych: COMMON NORMALS: mental status grossly normal Skin: COMMON NORMALS: no rashes or lesions noted, no wounds and turgor normal GENERAL SKIN EXAM: no rashes or lesions noted and turgor normal Course Reevaluation(s): Reevaluation #1: Patient's been stable and doing well. He states he subjectively feels better after his DuoNeb treatment. His initial troponin was just over the cutoff and a repeat is essentially the same. He never displayed any symptoms concerning for ACS or acute myocardial ischemia. His EKGs been reassuring I do not feel that he is any significant risk of ongoing ACS at this time. Chest x-ray is also reassuring. I think he is suffering from bronchitis we will plan on treating appropriately for that condition and to include a 5-day course of antibiotics given his smoking history and productive sputum. Discussed expected course,'s tobacco cessation etc. with both he and his spouse. He is stable at this time to be discharged. Time: 16:40 Vital Signs: Vital signs: Vital Signs Temperature 98.0 F 02/03/22 12:18 Pulse Rate 82 02/03/22 14:38 Respiratory Rate 18 02/03/22 14:38 Blood Pressure 163/64 02/03/22 12:18 Pulse Oximetry 96 02/03/22 14:38 MDM - SOB/Dyspnea Medical Decision Making Patient presents with approximately 1 week of cough congestion and concerns about potential serious illness. His evaluation here did not reveal any edith dence to suggest ACS, pneumonia or other worrisome condition to include COVID. He was not hypoxic not tachypneic or tachycardic. We will continue treatment as an outpatient for what clinically is consistent with COPD with bronchitis. Medical Records I reviewed the patient's medical records. Lab Data I reviewed the patient's lab results. : 02/03/22 13:50 02/03/22 13:50 Labs/Radiology: Radiology Impressions Chest X-Ray 02/03/22 12:38 IMPRESSION: COPD morphology of the chest. Laboratory Results WBC 10.1 10^3/uL (4.0-10.0) H 02/03/22 13:50 RBC 3.32 10^6/uL (4.1-5.3) L 02/03/22 13:50 Hgb 11.6 g/dL (11.7-16.6) L 02/03/22 13:50 Hct 33.9 % (42.0-52.0) L 02/03/22 13:50 MCV 102.1 fl (80-94) H 02/03/22 13:50 MCH 34.9 pg (28.0-34.0) H 02/03/22 13:50 MCHC 34.2 g/dL (30.0-36.0) 02/03/22 13:50 RDW 13.9 % (12.1-15.1) 02/03/22 13:50 Plt Count 220 10^3/cmm (130-400) 02/03/22 13:50 MPV 9.4 fL (7.4-10.4) 02/03/22 13:50 Neut % (Auto) 84.1 % 02/03/22 13:50 Lymph % (Auto) 6.7 % 02/03/22 13:50 Woods % (Auto) 8.5 % 02/03/22 13:50 Eos % (Auto) 0.2 % 02/03/22 13:50 Baso % (Auto) 0.1 % 02/03/22 13:50 Neut # (Auto) 8.52 10^3/uL (1.8-7.7) H 02/03/22 13:50 Lymph # (Auto) 0.7 10^3/uL (0.8-4.8) L 02/03/22 13:50 Woods # (Auto) 0.9 10^3/uL (0.2-0.9) 02/03/22 13:50 Eos # (Auto) 0.0 10^3/uL (0.0-0.8) 02/03/22 13:50 Baso # (Auto) 0.0 10^3/uL (0.0-0.1) 02/03/22 13:50 Nucleated RBC % (auto) 0 % 02/03/22 13:50 Nucleated RBCs # 0.0 /100WBC 02/03/22 13:50 Sodium 136 mmol/L (136-145) 02/03/22 13:50 Potassium 4.2 mmol/L (3.5-5.1) 02/03/22 13:50 Chloride 101 mmol/L (98-107) 02/03/22 13:50 Carbon Dioxide 19 mmol/L (22-29) L 02/03/22 13:50 Anion Gap 20.2 (5-19) H 02/03/22 13:50 BUN 34 mg/dL (8-23) H 02/03/22 13:50 Creatinine 1.2 mg/dL (0.7-1.2) 02/03/22 13:50 GFR Calculation Not Reportable 02/03/22 13:50 Glucose 108 mg/dL (65-115) 02/03/22 13:50 Calculated Osmolality 290 mOsm/kg (285-295) 02/03/22 13:50 Calcium 9.4 mg/dL (8.5-10.5) 02/03/22 13:50 Total Bilirubin 0.3 mg/dL (0.15-1.2) 02/03/22 13:50 AST 18 U/L (0-40) 02/03/22 13:50 ALT 23 U/L (0-41) 02/03/22 13:50 Alkaline Phosphatase 63 IU/L (40-130) 02/03/22 13:50 Troponin T Baseline 16 ng/L (0-15) H 02/03/22 13:50 Troponin T 120 Minute 14.62 ng/L (0-15) 02/03/22 15:47 Total Protein 8.3 g/dL (6.6-8.7) 02/03/22 13:50 Albumin 4.0 g/dL (3.5-5.2) 02/03/22 13:50 Globulin 4.3 g/dL (1.3-4.6) 02/03/22 13:50 SARS-CoV-2 Ag (Rapid) Negative (Negative) 02/03/22 13:50 EKG Data EKG 1: I personally reviewed and interpreted this EKG as follows: EKG interpretation time: 14:40 Interpretation: EKG reveals sinus rhythm of 78 bpm. Normal W[place] interval normal QRS duration normal QTc interval. Normal axis. Normal EKG without any acute ST-T wave changes. Discharge Plan Discharge Patient Disposition: Home Clinical Impression: Bronchitis, COPD (chronic obstructive pulmonary disease) Condition: Stable Prescriptions: New prednisone 20 mg tablet 20 mg PO BID 5 Days Qty: 10 0RF doxycycline hyclate 100 mg capsule 100 mg PO BID Qty: 10 0RF benzonatate 200 mg capsule 200 mg PO TID PRN (Reason: cough) Qty: 30 0RF No Action lactulose [Generlac] 10 gram/15 mL solution See Rx Instructions .ROUTE .COMPLEX Qty: 500 1RF Dose Instruction: TAKE 15ML BY MOUTH TWICE DAILY NEEDED FOR CONSTIPATION Rx Instructions: TAKE 15ML BY MOUTH TWICE DAILY NEEDED FOR CONSTIPATION [id number] 3-35-2 mg tablet 1 tab PO .every other day 30 Days Qty: 12 5RF albuterol sulfate [ProAir HFA] 90 mcg/actuation HFA aerosol inhaler 2 puff inhalation Q6H PRN (Reason: shortness of breath or wheezing) Qty: 6.7 2RF Rx Instructions: please give 90 day supply tramadol 50 mg tablet 100 mg PO BID 0RF cholecalciferol (vitamin D3) [Vitamin D3] 125 mcg (5,000 unit) Tablet 125 mcg PO QAM 0RF carvedilol 6.25 mg tablet 6.25 mg PO BID 0RF lisinopril 20 mg tablet 20 mg PO QAM 0RF lovastatin 10 mg tablet 10 mg PO BEDTIME 0RF pentoxifylline 400 mg tablet extended release 400 mg PO TID 0RF amlodipine 10 mg tablet 10 mg PO QAM 0RF Discharge Orders: Discharge ED (Routine); Ordered 02/03/22 Ordered By: Laurent Perla Referrals: Afshin Lamb FNP [Primary Care Provider] - Discharge Diet: Usual diet Discharge Activity: Increase activity as tolerated Patient Instructions: Opioid Safety Activity Restrictions/Additional Instructions: Stop smoking cigarettes. Use your inhaler 2 puffs 4 times daily regularly for the next 3 to 4 days and then you may decrease your use to as needed basis. Take the medications prescribed and available at your pharmacy. You may also use a teaspoon to a tablespoon of honey every 4-6 hours to help with your cough. If your symptoms persist, worsen or new symptoms develop return to this or the nearest emergency department. Coding Level of Care Code ED Debridging Machine Operator for Breonna Fwandres Exam Comprehensive
[2022-02-03 14:07] LABS: Basophils % 0.1 %; Eosinophils % 0.2 %; Hematocrit 33.9 % (42.0-52.0); Hemoglobin 11.6 g/dL (11.7-16.6); Lymphocytes # 0.7 10^3/uL (0.8-4.8); Lymphocytes % 6.7 %; Mean Corpuscular HGB Conc 34.2 g/dL (30.0-36.0); Mean Corpuscular Hemoglobin 34.9 pg (28.0-34.0); Mean Corpuscular Volume 102.1 fl (80-94); Mean Platelet Volume 9.4 fL (7.4-10.4); Monocytes # 0.9 10^3/uL (0.2-0.9); Monocytes % 8.5 %; Neutrophils # 8.52 10^3/uL (1.8-7.7); Neutrophils % 84.1 %; Nucleated Red Blood Cells % 0 %; Platelet Count 220 10^3/cmm (130-400); Red Blood Count 3.32 10^6/uL (4.1-5.3); Red Cell Distribution Width 13.9 % (12.1-15.1); White Blood Count 10.1 10^3/uL (4.0-10.0)
--- NOTE | 2022-02-03 14:26 | PC.PHAR ---
pt states he takes care of his own medications-pt states he stop taking aspirin 81mg about 3-4 months ago-
[2022-02-03] MEDS: ipratropium-albuterol 3 mL Neb INHALATION (14:30)
[2022-02-03 14:32] VITALS: PULSE 82; RESP 18; O2SAT 96
[2022-02-03 14:33] LABS: Alanine Aminotransferase 23 U/L (0-41); Alkaline Phosphatase 63 IU/L (40-130); Anion Gap 20.2 (5-19); Aspartate Amino Transferase 18 U/L (0-40); Blood Urea Nitrogen 34 mg/dL (8-23); Calcium 9.4 mg/dL (8.5-10.5); Carbon Dioxide 19 mmol/L (22-29); Chloride 101 mmol/L (98-107); Globulin 4.3 g/dL (1.3-4.6); Glucose 108 mg/dL (65-115); Osmolality Calculated 290 mOsm/kg (285-295); Potassium 4.2 mmol/L (3.5-5.1); Sodium 136 mmol/L (136-145); Total Bilirubin 0.3 mg/dL (0.15-1.2); Total Protein 8.3 g/dL (6.6-8.7)
[2022-02-03 14:36] LABS: Troponin(5th) Baseline 16 ng/L (0-15)
[2022-02-03 14:38] VITALS: PULSE 82; RESP 18; O2SAT 96
[2022-02-03 15:00] LABS: SARS Covid-2 Antigen Negative (Negative)
[2022-02-03 16:11] LABS: Troponin 5 2HR 14.62 ng/L (0-15)
[2022-02-03] MEDS: predniSONE 20 mg Tablet 40 MG PO (16:43)
[2022-02-03] MEDS: doxycycline 100 mg Tablet PO (16:43)
[2022-02-03 17:23] LABS: Troponin 5 2HR Delta -1.38 ABS# (0-10)
== END 2022-02-03 17:17 | disposition home or self-care (01) ==
PROVIDERS: Emergency Provider Emergency Medicine; PCP Nurse Practitioner Family
DX: J44.9 Chronic obstructive pulmonary disease, unspecified (principal); Z72.0 Tobacco use; Z20.822 Contact with and (suspected) exposure to COVID-19
CPT/HCPCS: 71045; 80053; 84484; 85025; 87426; 93005; 94640; 99284; J7512

== ENCOUNTER 2022-08-31 09:22 | Oncology outpatient (recurring) (ONCR) | payer MEDICARE, OTHER, SELFPAY ==
[2022-08-31 10:01] LABS: Basophils % 0.6 %; Eosinophils # 0.2 10^3/uL (0.0-0.8); Eosinophils % 3.6 %; Hematocrit 34.5 % (42.0-52.0); Hemoglobin 11.3 g/dL (11.7-16.6); Lymphocytes # 1.1 10^3/uL (0.8-4.8); Lymphocytes % 23.5 %; Mean Corpuscular HGB Conc 32.8 g/dL (30.0-36.0); Mean Corpuscular Volume 106.8 fl (80-94); Mean Platelet Volume 9.2 fL (7.4-10.4); Monocytes # 0.5 10^3/uL (0.2-0.9); Monocytes % 11.5 %; Neutrophils # 2.84 10^3/uL (1.8-7.7); Neutrophils % 60.6 %; Nucleated Red Blood Cells % 0 %; Platelet Count 183 10^3/cmm (130-400); Red Blood Count 3.23 10^6/uL (4.1-5.3); Red Cell Distribution Width 14.6 % (12.1-15.1); White Blood Count 4.7 10^3/uL (4.0-10.0)
[2022-08-31 10:34] LABS: Carcinoembryonic Antigen 1.8 ng/mL (0.0-4.7)
[2022-08-31 10:45] LABS: Alanine Aminotransferase 15 U/L (0-41); Albumin Level 3.9 g/dL (3.5-5.2); Alkaline Phosphatase 70 U/L (40-130); Anion Gap 12.5 (5-19); Aspartate Amino Transferase 22 U/L (0-40); Blood Urea Nitrogen 29 mg/dL (8-23); Calcium 8.7 mg/dL (8.5-10.5); Carbon Dioxide 24 mmol/L (22-29); Chloride 103 mmol/L (98-107); Globulin 3.2 g/dL (1.3-4.6); Glucose 96 mg/dL (65-115); Osmolality Calculated 286 mOsm/kg (285-295); Potassium 4.5 mmol/L (3.5-5.1); Sodium 135 mmol/L (136-145); Total Bilirubin 0.2 mg/dL (0.15-1.2); Total Protein 7.1 g/dL (6.6-8.7)
== END 2022-09-25 23:59 | disposition home or self-care (01) ==
PROVIDERS: PCP Nurse Practitioner Family; Visit Provider Internal Medicine Medical Oncology
DX: Z92.3 Personal history of irradiation (principal); Z92.21 Personal history of antineoplastic chemotherapy; R91.1 Solitary pulmonary nodule; Z08 Encounter for follow-up examination after completed treatment for malignant neoplasm; Z85.048 Personal history of other malignant neoplasm of rectum, rectosigmoid junction, and anus
CPT/HCPCS: 36415; 80053; 82378; 85025; 99213

== ENCOUNTER 2022-09-06 07:49 | Outpatient (CLI) | payer MEDICARE, OTHER, SELFPAY ==
--- NOTE | 2022-09-06 08:00 | CT_ITS ---
WS: [id number] CT CHEST TECHNIQUE: Noncontrast CT of the chest with coronal and sagittal reformatted images. CLINICAL INFORMATION: Follow-up for pulmonary nodule COMPARISON: CT July 28, 2021 DLP: 266.[address] scans at [facility] use at least one of these dose optimization techniques: automated e xposure control; mA and/or kV adjustment per patient size (includes targeted exams where dose is matc hed to clinical indication); or iterative reconstruction. FINDINGS: Moderate chronic emphysematous changes. Stable slightly spiculated 11 mm pulmonary nodule RIGHT upper lobe along the fissure. This is unchanged in appearance 2020. Slight fibrosis in the RIGHT greater t martinez LEFT lung apices. Hypertrophic changes thoracic spine. Adrenal glands are normal. Partially visualized bilateral renal cysts. Adrenal glands are normal. Aortic calcification. Slightly ectatic ascending thoracic aorta birgit suring 3.4 CM. Coronary calcification. A few prominent anterior mediastinal, AP window and subcarinal lymph nodes likely reactive. No axillary lymphadenopathy. CT/CT chest con [id number] IMPRESSION: 1. Stable slightly spiculated 11 mm pulmonary nodule RIGHT upper lobe along th e fissure. Recommend continued surveillance with 12 month follow-up chest CT 2. No mediastinal or hilar lymphadenopathy. 3. Moderate chronic emphysematous changes. 4. No other acute findings.
== END 2022-09-06 07:50 | disposition home or self-care (01) ==
LOC: RAD 07:52
PROVIDERS: PCP Nurse Practitioner Family; Visit Provider Internal Medicine Medical Oncology
DX: R91.1 Solitary pulmonary nodule (principal)
CPT/HCPCS: 71250

== ENCOUNTER 2022-12-27 06:00 | Outpatient (RCR) | payer MEDICARE, OTHER, SELFPAY | END 2023-01-23 23:59 | disposition home or self-care (01) | LOC: WPT 06:00 | PROVIDERS: Visit Provider Family Medicine | DX: M25.551 Pain in right hip (principal); M25.552 Pain in left hip; M54.40 Lumbago with sciatica, unspecified side | CPT/HCPCS: 97110; 97112; 97163; 97530 ==

== ENCOUNTER 2023-01-23 14:07 | Outpatient (CLI) | payer MEDICARE, OTHER, SELFPAY ==
--- NOTE | 2023-01-23 14:16 | XR_ITS ---
WS: [email or web address] Exam: XR lumbar spine 2-3V* [id number] Date/Time of Exam: 01/23/2023 2:25 PM Reason For Exam: M54.40 - Lumbago with sciatica, unspecified side Comparison 07/14/2018. No acute fracture or dislocation. Advanced degenerative disc changes and spondylosis at all levels. F acet arthropathy at all levels. Moderate thoracolumbar dextroscoliosis noted. Extensive aortoiliac at herosclerotic disease. XR/XR lumbar spine 2-3V* [id number] IMPRESSION: 1. No acute fracture. 2. Advanced degenerative changes, dextroscoliosis showing little change since t he prior study.
--- NOTE | 2023-01-23 14:16 | XR_ITS ---
WS: [id number] Exam: XR hip BI 3-4V wo/w pel [id number] Date/Time of Exam: 01/23/2023 2:25 PM Reason For Exam: M54.40 - Lumbago with sciatica, unspecified side Right hip. Comparison 07/14/2018. No acute fracture or dislocation noted. Moderate degenerative narrowing of the joint compartment. Sub cortical cyst formation in the femoral head and acetabulum. Adjacent soft tissues appear normal. XR/XR hip BI 3-4V wo/w pel [id number] IMPRESSION: 1. Moderately advanced degenerative changes. No fracture or dislocation. Left hip. Comparison 07/14/2018. No acute fracture or dislocation. Moderate degenerative change of the joint com partment. Unremarkable soft tissues. IMPRESSION: 1. Moderate degenerative change. No fracture or dislocation.
== END 2023-01-23 14:08 | disposition home or self-care (01) ==
PROVIDERS: PCP Family Medicine; Visit Provider Family Medicine
DX: M51.16 Intervertebral disc disorders with radiculopathy, lumbar region (principal); M16.12 Unilateral primary osteoarthritis, left hip; M85.68 Other cyst of bone, other site; M25.551 Pain in right hip; M25.552 Pain in left hip; M41.9 Scoliosis, unspecified
CPT/HCPCS: 72100; 73522

== ENCOUNTER → 2023-02-18 14:25 | Outpatient (BNVA) | payer MEDICARE, OTHER, SELFPAY | PROVIDERS: PCP Family Medicine; Referring Provider Family Medicine; Visit Provider Student in an Organized Health Care Education/Training Program | DX: M25.551 Pain in right hip (principal); M25.552 Pain in left hip | CPT/HCPCS: 20610; 73502; 99204; J3301; J3490 ==

== ENCOUNTER → 2023-03-07 10:49 | Outpatient (BNVA) | payer MEDICARE, OTHER, SELFPAY | PROVIDERS: PCP Family Medicine; Referring Provider Student in an Organized Health Care Education/Training Program; Visit Provider Orthopaedic Surgery | DX: M54.40 Lumbago with sciatica, unspecified side (principal) | CPT/HCPCS: 72110; 99204 ==

== ENCOUNTER 2023-04-01 09:02 | Outpatient (CLI) | payer MEDICARE, OTHER, SELFPAY ==
--- NOTE | 2023-04-01 09:30 | MR_ITS ---
WS: [id number] MRI LUMBAR SPINE NONCONTRAST HISTORY: Low back and bilateral lower extremity pain and weakness. COMPARISON: Radiographs 03/07/2023. TECHNIQUE: Sagittal and axial multisequence imaging is submitted. Degenerative disc disease in the cervical spine. Marked S-shaped curvature lumbar spine with asymmetr ic disc space narrowing. Scoliosis with severe disc space narrowing most significant at L2-3 with complete loss of the disc sp juno and partial osseous fusion. Disc spaces are diffusely narrowed. Small amount of edema along the L1 and L2 endplates. Conus terminates normally at L1. T12-L1: Mild annular disc bulging and osteophytic ridging. Mild bilateral subarticular recess and for aminal stenosis. L1-L2: Diffuse annular disc bulging with osteophytic ridging. Very slight retrolisthesis of L1. Disc and osteophyte encroachment upon the thecal sac and subarticular recesses. Moderate central, bilatera l subarticular recess and foraminal stenosis. L2-L3: Diffuse osteophytic ridging with mild ligamentum flavum and facet arthritis. Small amount of f luid in the facet joints. Mild central stenosis with moderate bilateral subarticular recess and michael inal stenosis, predominantly due to osteophytes. L3-L4: Marked osteophytic ridging with ligamentum flavum and facet arthritis. Asymmetric disc bulging . Severe central, bilateral subarticular recess and foraminal stenosis. Greater stenosis on the LEFT. There is deformity and effacement of the L3 and L4 nerve roots bilaterally. L4-L5: Diffuse annular disc bulging with osteophytic ridging. Marked ligamentum flavum and facet arth ritis. Severe central, bilateral subarticular recess and foraminal stenosis. There is severe encroach ment upon the traversing L5 nerve roots. There is also severe encroachment upon the LEFT L4 exiting n erve root. L5-S1: Diffuse annular disc bulging with ligamentum flavum and facet arthritis. Severe stenosis centr ally, subarticular recess and foraminal stenosis. There is complete effacement of fat in the foramina . Near complete obliteration of the thecal sac. Bilateral renal cysts. Mild atherosclerosis aorta. MR/MR lumbar spine wo con* [id number] IMPRESSION: 1. Severe degenerative changes of the lumbar spine and marked facet joint arth ritis at numerous levels. 2. Complete loss of the L2-3 disc with partial bony fusion across the disc. 3. L3-4, L4-5 and L5-S1: Severe central, bilateral subarticular recess and for aminal stenosis. Marked encroachment upon the traversing and exiting nerve root s at each level. 4. T12-L1: Mild bilateral subarticular recess and foraminal stenosis. 5. L1-2: Moderate central, bilateral subarticular recess and foraminal stenosi s. 6. L2-3: Mild central stenosis with moderate bilateral subarticular recess and foraminal stenosis.
== END 2023-04-01 09:03 | disposition home or self-care (01) ==
LOC: RAD 09:06
PROVIDERS: PCP Family Medicine; Visit Provider Orthopaedic Surgery
DX: M47.817 Spondylosis without myelopathy or radiculopathy, lumbosacral region (principal); M48.07 Spinal stenosis, lumbosacral region
CPT/HCPCS: 72148

== ENCOUNTER → 2023-04-18 11:07 | Outpatient (BNVA) | payer MEDICARE, OTHER, SELFPAY | PROVIDERS: PCP Family Medicine; Visit Provider Orthopaedic Surgery | DX: M48.062 Spinal stenosis, lumbar region with neurogenic claudication | CPT/HCPCS: 99214 ==

== ENCOUNTER → 2023-05-28 10:48 | Outpatient (BNVA) | payer MEDICARE, OTHER, SELFPAY | PROVIDERS: PCP Family Medicine; Visit Provider Student in an Organized Health Care Education/Training Program | DX: M70.61 Trochanteric bursitis, right hip (principal); M70.62 Trochanteric bursitis, left hip | CPT/HCPCS: 99213 ==

== ENCOUNTER → 2023-05-29 08:46 | Outpatient (BNVA) | payer MEDICARE, OTHER, SELFPAY | PROVIDERS: PCP Family Medicine; Visit Provider Anesthesiology Pain Medicine | DX: M48.062 Spinal stenosis, lumbar region with neurogenic claudication (principal); M51.16 Intervertebral disc disorders with radiculopathy, lumbar region; M47.816 Spondylosis without myelopathy or radiculopathy, lumbar region; M41.9 Scoliosis, unspecified | CPT/HCPCS: 99205 ==

== ENCOUNTER → 2023-06-20 13:15 | Outpatient (BNVA) | payer MEDICARE, OTHER, SELFPAY | PROVIDERS: PCP Family Medicine; Visit Provider Anesthesiology Pain Medicine | DX: M51.16 Intervertebral disc disorders with radiculopathy, lumbar region (principal); M48.062 Spinal stenosis, lumbar region with neurogenic claudication | CPT/HCPCS: 64483; 64484; J1100; J3490; Q9967 ==

== ENCOUNTER → 2023-07-23 13:52 | Outpatient (BNVA) | payer MEDICARE, OTHER, SELFPAY | PROVIDERS: PCP Family Medicine; Visit Provider Anesthesiology Pain Medicine | DX: M54.16 Radiculopathy, lumbar region (principal); M48.062 Spinal stenosis, lumbar region with neurogenic claudication | CPT/HCPCS: 64483; 64484; J1100; J3490 ==

== ENCOUNTER → 2023-08-06 08:54 | Outpatient (BNVA) | payer MEDICARE, OTHER, SELFPAY | PROVIDERS: PCP Family Medicine; Visit Provider Anesthesiology Pain Medicine | DX: M48.062 Spinal stenosis, lumbar region with neurogenic claudication (principal); M51.16 Intervertebral disc disorders with radiculopathy, lumbar region; M47.816 Spondylosis without myelopathy or radiculopathy, lumbar region; M41.9 Scoliosis, unspecified | CPT/HCPCS: 99215 ==

== ENCOUNTER → 2023-08-23 08:54 | Outpatient (BNVA) | payer MEDICARE, OTHER, SELFPAY | PROVIDERS: PCP Family Medicine; Visit Provider Physician Assistant | DX: M70.61 Trochanteric bursitis, right hip (principal) | CPT/HCPCS: 20610; 99213; J3301; J3490 ==

== ENCOUNTER → 2023-09-03 11:17 | Outpatient (BNVA) | payer MEDICARE, SELFPAY | PROVIDERS: PCP Family Medicine; Visit Provider Student in an Organized Health Care Education/Training Program | DX: M17.11 Unilateral primary osteoarthritis, right knee (principal) | CPT/HCPCS: 20610; 73560; 73565; 99213; J3301 ==

== ENCOUNTER → 2023-09-04 10:22 | Outpatient (BNVA) | payer MEDICARE, SELFPAY | PROVIDERS: PCP Family Medicine; Visit Provider Nurse Practitioner Family | DX: E55.9 Vitamin D deficiency, unspecified (principal); E78.5 Hyperlipidemia, unspecified; I10 Essential (primary) hypertension; Z79.899 Other long term (current) drug therapy | CPT/HCPCS: 80053; 80061; 81003; 82306; 83036; 84443; 85025 ==

== ENCOUNTER → 2023-10-18 14:14 | Outpatient (BNVA) | payer MEDICARE, SELFPAY | PROVIDERS: PCP Family Medicine; Visit Provider Orthopaedic Surgery | DX: M48.062 Spinal stenosis, lumbar region with neurogenic claudication; Z01.812 Encounter for preprocedural laboratory examination | CPT/HCPCS: 36415; 80053; 81001; 85025; 99214 ==

== ENCOUNTER → 2023-10-24 09:31 | Outpatient (BNVA) | payer MEDICARE, SELFPAY | PROVIDERS: PCP Family Medicine; Visit Provider Family Medicine | DX: Z01.818 Encounter for other preprocedural examination (principal) | CPT/HCPCS: 80048; 81003 ==

== ENCOUNTER 2023-11-01 15:35 | Observation (INO) | payer MEDICARE, SELFPAY ==
[2023-11-01] VITALS (16 sets, daily range): BP systolic 122–162; BP diastolic 54–82; PULSE 67–86; RESP 12–18; TEMP 36.4–36.9; O2SAT 92–100; BMI 20.2
--- NOTE | 2023-11-01 | XR_ITS ---
WS: [email or web address] INTRAOPERATIVE TECHNIQUE: 4 Spot fluoroscopic images for intraoperative purposes. FLUOROSCOPY TIME: 12.4 seconds CLINICAL INFORMATION: JOHN PICS FINDINGS: Localization marker projected over the S1 vertebral body and upper L4 vertebral body IMPRESSION: Images obtained for intraoperative purposes.
[2023-11-01] MEDS: sodium chloride 0.9% 1,000 ML 30 ML IV (10:16)
--- NOTE | 2023-11-01 11:27 | ANES.PREANE2 ---
Pre-Anesthetic Assessment Height/Weight: Height 1.8 m Weight 65.771 kg Temp Pulse Resp BP Pulse Ox O2 Del Method 98.3 F 78 18 162/78 97 Room Air 11/01/23 10:00 11/01/23 10:00 11/01/23 10:00 11/01/23 10:00 11/01/23 10:00 11/01/23 10:18 Preop Diagnosis: Lumbar stenosis with neurogenic claudication Operation Date: 11/01/23 11:30 Proposed Procedures p Lumbar Spine Decompression Lumbar Decompression(Not Applicable) - Dilan Royal, DO Was Beta Jonathan taken within 24 hours: Yes Last intake: Intake Last Liquid Date 10/31/23 Last Liquid Time 21:00 Last Solid Date 10/31/23 Last Solid Time 21:00 Last Intake: 20:00 Social 1 pack(s) per day 60 pack years Exam alert, oriented x 3, clear to auscultation bilaterally and regular rate & rhythm Airway Submandibular: within normal limits Cervical ROM: within normal limits Mallampati: Class I CV/HEM Hypertension Chronic Renal Insufficiency stage 3 Musc/skel Lower Back Pain bilateral radiculopathy Anesthetic Plan ASA status: 3 Anesthesia: General Risk of > 500 ml blood loss (7ml/kg in children): No Medications/Allergies Home Medications Medication Instructions Recorded Confirmed Last Taken Type cholecalciferol (vitamin D3) 125 125 mcg PO QAM 02/03/22 11/01/23 10/31/23 History mcg (5,000 unit) tablet (Vitamin D3) albuterol sulfate 90 mcg/actuation 2 puff inhalation Q6H PRN 03/04/23 11/01/23 10/31/23 Rx aerosol inhaler (Ventolin HFA) shortness of breath or wheezing #8.5 grams carvedilol 6.25 mg tablet 6.25 mg PO BID #180 tabs 06/07/23 11/01/23 10/31/23 Rx lovastatin 10 mg tablet 10 mg PO BEDTIME #90 tabs 07/09/23 11/01/23 10/31/23 Rx mecobalamin-levomefolate 1 tab PO .every other day 30 days 08/29/23 11/01/23 10/30/23 Rx calcium-pyridoxal phos 3 mg-35 #12 tabs mg-2 mg tablet ([id number]-B12) tramadol 50 mg tablet 100 mg (2 x 50 mg) PO BID 30 days 10/25/23 11/01/23 10/31/23 Rx #120 tabs amlodipine 10 mg tablet 10 mg PO DAILY 10/31/23 11/01/23 10/31/23 History lisinopril 20 mg tablet 20 mg PO DAILY 10/31/23 11/01/23 10/31/23 History pentoxifylline 400 mg 400 mg PO TID 10/31/23 11/01/23 10/31/23 History tablet,extended release Allergies Allergy/AdvReac Type Severity Reaction Status Date / Time No Known Allergies Allergy Verified 10/31/23 12:30 Current Medications Generic Name Dose Route Start Last Admin Trade Name Smith PRN Reason Stop Dose Admin Sodium Chloride 1,000 mls @ 30 mls/hr 11/01/23 10:00 11/01/23 10:16 Sodium Chloride 0.9% IV 11/02/23 09:59 30 mls/hr .Q24H HILARIO Administration PFSH Anesthesia Medical History Hypertension Arthritis Vitamin D deficiency Back Pain Rectal cancer Environmental and seasonal allergies Irritable bowel syndrome (IBS) Chronic constipation Anemia Osteoporosis Anxiety Vitamin B 12 deficiency Hyperlipidemia Surgical History History of colon surgery (05/2015) Rectosigmoid segmental resection with appendectomy History of colostomy reversal History of knee replacement (2012) Left total knee replacement History of hip surgery Social History Smoking and tobacco/nicotine status: current every day tobacco/nicotine user Alcohol intake: never Marital status: Current occupational status: retired Data Anesthesia Cardiac Studies: No Data to Display
--- NOTE | 2023-11-01 12:34 | W.PM.OPSUD ---
Surgery/Procedure H&P Update DATE OF PROCEDURE: November 01, 2023 DATE H&P PERFORMED: 10/24/23 H&P UPDATE INFORMATION: I have reviewed H&P completed within last 30 days, I have examined patient prior to procedure and No changes to prior documentation PREOP DIAGNOSIS: Lumbar stenosis with neurogenic claudication PLANNED PROCEDURE: Operation Date: 11/01/23 11:30 Proposed Procedures p Lumbar Spine Decompression Lumbar Decompression(Not Applicable) - Dilan oRyal DO
[2023-11-01] MEDS: ceFAZolin 2,000 MG in sodium chloride 0.9% (plus) 50 ML 100 MG IV ×2 (13:06→20:10)
[2023-11-01] MEDS: lidocaine-epi 1% 20 mL INJ 10 ML INJECTION (13:36)
[2023-11-01] MEDS: vancomycin 1,000 MG SDV 1000 MG XX (15:14)
--- NOTE | 2023-11-01 15:41 | PM.OP ---
Operative Report Date of procedure: November 01, 2023 Pre-op diagnosis: Lumbar stenosis with neurogenic claudication Post-op diagnosis: same Procedure done: 1. L3-4 laminectomy with partial facetectomies 2. L4-5 laminectomy with partial facetectomies 3. L5-S1 laminectomy with partial facetectomies Surgeon: Dilan Royal DO Estimated blood loss (mL): 100 Procedure: 1. L3-4 laminectomy with partial facetectomies 2. L4-5 laminectomy with partial facetectomies 3. L5-S1 laminectomy with partial facetectomies Please read your procedure after Anesthesia was placed in the prone position. All areas measure well-padded. Patient's prepped draped also fashion. Skin incision made over the L3-S1 level. The spinous processes were identified. Subperiosteal dissection was made out to the facet joints of L3-4, L4-5 and L5-S1. Retractors were placed. Attention was first brought to the L5-S1 level. The spinous process was taken down with a rongeur. The laminectomy was performed with a high-speed bur and curved curettes and Kerrison rongeurs. The medial aspect of the facet joints were taken down using high-speed bur and curved curettes and Kerrison rongeurs. This was done bilaterally. The ligamentum flavum was taken down after levels gone to S1. The S1 nerve roots were traced around the S1 pedicles. The L5 nerve roots were traced out the L5-S1 foramen bilaterally. Next tension was brought to the L4-5 level. The spinous process was taken down with a rongeur. The high-speed bur was then used to take down the lamina and the medial aspect of facet joints were taken down with a high-speed bur and curved curettes and Kerrison rongeurs. This was done bilaterally. On the left side there was a small tear in the dura there was no leak of CSF but the arachnoid layer was bulging through the dura. At the end of the case a DuraGen patch was placed over this with DuraSeal. The L4 nerve roots were traced out the L4-5 foramen bilaterally and the L5 nerve was traced around the L5 pedicles. Attention was then brought to the L3-4 level. The spinous process was taken down the lamina taken down with a high-speed bur the ligamentum flavum was taken down from L3 3 to L4. And then the medial aspect of the facet joints taken down with a high-speed bur curved curettes and Kerrison rongeurs. L3 nerves were traced at the L3-4 foramen the L4 nerve straight from the L4 pedicles. Wounds were irrigated closed wound was closed in layered fashion with 0 Vicryl 2-0 Vicryl and Monocryl suture. Sterile dressings applied patient transferred to PACU in stable addition.
--- NOTE | 2023-11-01 15:58 | ANE.PACU2 ---
Inpatient post-anesthesia follow up: Airway intact: Yes Vital signs: Temperature 98.4 F Pulse Rate 82 Respiratory Rate 17 Blood Pressure 147/79 Pulse Oximetry 100 Oxygen Delivery Me thod Simple Mask Oxygen Flow Rate 6 Fraction of Inspir ed Oxygen Hydration adequate: Yes Nausea and vomiting: No Pain level: 3 Mental status: Baseline
[2023-11-01] MEDS: fentaNYL 50 mcg/mL INJ 2mL IVP (16:01)
[2023-11-01] MEDS: TRAMadol 50 mg Tablet 100 MG PO (17:01)
[2023-11-01] MEDS: ketorolac 30 mg/mL INJ IVP (17:01)
[2023-11-01] MEDS: lactated ringers 1,000 ML 90 ML IV (17:02)
[2023-11-01] MEDS: docusate sodium 100 mg Capsule PO (18:04)
[2023-11-01] MEDS: carvedilol 6.25 mg Tablet PO (18:04)
[2023-11-01] MEDS: HYDROcodone-acetaminophen 5-325 mg Tablet PO (18:14)
[2023-11-01] MEDS: atorvastatin 40 mg Tablet PO (20:10)
[2023-11-01] MEDS: morphine 4 mg/mL SDV 1 mL 2 MG IVP ×2 (20:10→21:11)
[2023-11-02] VITALS: BP 133/64; PULSE 67; RESP 18; TEMP 36.4; O2SAT 94
[2023-11-02] MEDS: lactated ringers 1,000 ML 90 ML IV (04:00)
[2023-11-02] MEDS: ceFAZolin 2,000 MG in sodium chloride 0.9% (plus) 50 ML 100 MG IV ×2 (04:00→12:54)
[2023-11-02] MEDS: cholecalciferol (vitamin D3) 5,000 unit Tablet 5000 UNIT PO (05:17)
[2023-11-02 05:57] VITALS: BP 132/71; PULSE 68; RESP 17; TEMP 36.4; O2SAT 94
[2023-11-02 07:26] VITALS: BP 136/74; PULSE 67; RESP 17; O2SAT 96
[2023-11-02 08:15] VITALS: PULSE 67; RESP 16; O2SAT 96
[2023-11-02] MEDS: docusate sodium 100 mg Capsule PO (08:22)
[2023-11-02] MEDS: TRAMadol 50 mg Tablet 100 MG PO (08:22)
[2023-11-02] MEDS: amlodipine 10 mg Tablet PO (08:22)
[2023-11-02] MEDS: lisinopril 20 mg Tablet PO (08:22)
[2023-11-02] MEDS: carvedilol 6.25 mg Tablet PO (08:23)
--- NOTE | 2023-11-02 10:51 | P.DS_ITS ---
Discharge Providers Date of Admission: 11/01/23 15:35 Date of Discharge: November 02, 2023 Attending Provider at Admission: Dilan Royal DO Attending Provider at Discharge: Dilan Royal DO Primary Care Provider: DREW Harper Reason for Visit Reason for Visit: M48.062 Physical Exam Narrative: Patient is not having any pain at all at this point. Drain has minimal output. Plan will be to pull the drain. Discharge Data Studies Completed and Pending Pending at discharge Category Date Time Status C-arm Fluoroscopy [id number] Routine Exams 11/01/23 09:46 Taken Vitals Last Vital Signs Temp 97.5 F L 11/02/23 05:57 Pulse 67 11/02/23 08:15 Resp 16 11/02/23 08:15 BP 136/74 11/02/23 07:26 Pulse Ox 96 11/02/23 08:15 O2 Del Method Room Air 11/02/23 08:15 O2 Flow Rate 6 11/01/23 15:52 Discharge Plan Discharge Patient Disposition: Home Condition: Stable Prescriptions: New hydrocodone-acetaminophen 5-325 mg tablet 1 - 2 tab PO .Q4-6H Qty: 40 0RF Continued albuterol sulfate [Ventolin HFA] 90 mcg/actuation HFA aerosol inhaler 2 puff inhalation Q6H PRN (Reason: shortness of breath or wheezing) Qty: 8.5 5RF carvedilol 6.25 mg tablet 6.25 mg PO BID Qty: 180 1RF lovastatin 10 mg tablet 10 mg PO BEDTIME Qty: 90 1RF X-[id number] 3-35-2 mg tablet 1 tab PO .every other day 30 Days Qty: 12 5RF tramadol 50 mg tablet 100 mg PO BID 30 Days Qty: 120 2RF cholecalciferol (vitamin D3) [Vitamin D3] 125 mcg (5,000 unit) Tablet 125 mcg PO QAM lisinopril 20 mg tablet 20 mg PO DAILY Rx Instructions: TAKE 1 TABLET BY MOUTH EVERY DAY pentoxifylline 400 mg tablet extended release 400 mg PO TID Rx Instructions: TAKE ONE TABLET BY MOUTH THREE TIMES DAILY amlodipine 10 mg tablet 10 mg PO DAILY Rx Instructions: TAKE 1 TABLET BY MOUTH EVERY DAY Discharge Orders: Discharge Order (Routine); Ordered 11/02/23 Ordered By: Dilan Royal Discharge Diet: Advance as tolerated Discharge Activity: Limit activity as instructed Patient Instructions: Opioid Safety Activity Restrictions/Additional Instructions: Thank you for [facility] for your care! The following is a list of instructions, from your provider, to follow upon your discharge to ensure you have the optimal recovery from your recent injury orsurgery. Follow-up care is a hummel part of your treatment and safety. Be sure to make and go to all appointments, and call your doctor if you are having problems. If you do not already have a follow-up appointment made, call Dr. Royal office in the next 1-3 days to make follow up appointment for 2 weeks at [phone]. It is also a good idea to know your test results and keep a list of the medicines you take. Medications will be prescribed for you at your provider's discretion. These medications are to be used as instructed; if they are taken more often that prescribed they will not be refilled early and in most cases will not be refilled at all. > When a refill is needed,you should contact leonidas ashley 2-3 business days before your prescription runs out. Medications will NOT be refilled by cardiac monitor providers after hours! > Many pain medications contain Tylenol (Acetaminophen). Do not consume more than 4,000 mg of Tylenol per day in total with any combination ofmedications. > Pain medications can cause constipation. Please use an over the counter stool softener as directed, while taking pain medications. Consulty our local pharmacist with questions or recommendations on stool softeners. If constipation persists, contact our office or your primary care provider. > While under our care,you are not to receive pain medications or other controlled substances from any other provider unless our office is notified and approves. Any attempts to do so will result in refusal to prescribe any further pain medications and possible dismissal from our practice. ? Your wound and/or dressing should remain clean and dry for 2 days after surgery. On postoperative day 2 (48 hours after your surgery) the dressing (if present) should be removed and it is okay to shower and get the incision wet. Pad dry afterwards. No further dressing should be required from that point on. Do not put any creams or ointments on theincision > It is normal for there to be a small amount of discharge (bloody or blood tinged) present from a surgical wound for the first 1-3days. > The wound should be examined twice a day for signs of infection. Mild redness or bruising is to be expected but indications that an infection maybe starting would include; An increase in redness, swelling, or discharge, a foul odor present around the incision, and/or a fever greater than 101 ?F ? Showering is permitted, however we ask that you do not take a bath, sit in a whirlpool / Jacuzzi, or go swimming for 1 month. For only the first 2 days after surgery, lt wilt be necessary for you to cover your wound/dressing with plastic and tape to keep it dry. ? Walking is essential for the healing process after surgery. We would like you to slowly advance your walking. This should be done on relatively flat clear ground (inside or out) or can be done on a treadmill. Remember this goal does not have to happen all at once, slowly increase your distance and duration. This can be broken into more more than one walk per day as tolerated. Patients who walk as directed after surgery rarely require Physical Therapy. In the unlikely event this issue arises your provider will direct hospital staff to make the appropriate arrangements. ? No lifting over 5 pounds {a gallon of milk) or bending/twisting until further notice. Each of these activities places an unnecessary amount of stress onto the body and can impede the delicate healing process. > Instead of bending at the waist, keep your back straight and bend at the knees. > Instead of twisting your torso, keep your back straight and turn your entire body with your feet. ? You may sleep in any position which makes you comfortable. Many patients find comfort sleeping in a reclining chair. It is not abnormal to have difficulty sleeping for the first several weeks following your surgery. We recommend trying Benadry! or Tylenol PM as directed to help with your sleeping difficulties. Both medications are over the counter and available withoutprescription. ? NO SMOKING!!! Smoking dramatically increases the probability of developing postoperative wound infections. ? Common complaints after lumbar and/or thoracic spine surgery include, but are not limited to: numbness and/or tingling in the legs, pain around the incision and surrounding tissues, muscle spasms, or stiffness of the middle to low back. Contact our office if these symptoms persist or if an acute change occurs. ? No driving for the first 3-5days, and not while taking narcotics until seen at your follow-up appointment and cleared. There are no restrictions for riding on short trips, however if you take a longer trip, arrangements shoul d be made to make regular stops to get out of the vehicle and stretch . ? Swelling is an unfortunate event that will take place with any surgery and is the primary source of your postoperative discomfort. While walking and regular approved activities helps control inflammation, there are additional steps you can take to minimizeswelling. > Place ice over the surgical site and surrounding tissue for twenty minutes, followed by applying a low/medium heat (heating pad) for an additional twenty minutes every 1-2 hours as needed for painrelief. > You may use of over the counter anti-inflammatory medications (Ibuprofen, Motrin, Aleve, Advil, etc) as directed on the package label. These types of medicines wm significantly reduce the amount of discomfort you experience after surgery from swelling. It should be noted that if you have and allergy to any of these medications, or a history of ulcers or kidney disease you should consult you primary care provider prior to starting these medications. Discharge Attestations Time Spent in Discharge Care*: less than 30 min Quality Metrics Clinical Quality Measures [ No reported AMI, CVA or VTE this stay] Coding Level of Care Code Acute Code for Chg Fwd
[2023-11-02] MEDS: HYDROcodone-acetaminophen 5-325 mg Tablet PO ×2 (11:04→15:23)
--- NOTE | 2023-11-02 11:13 | PC.NURSE ---
Dr. Royal states that patient will not be able to discharge until after 3pm.
[2023-11-02 12:00] VITALS: BP 141/78; PULSE 72; RESP 16; O2SAT 96
[2023-11-02 15:40] VITALS: BP 141/78; PULSE 72; RESP 16; O2SAT 96
== END 2023-11-02 15:41 | disposition home or self-care (01) ==
LOC: MEDSURG 16:57
PROVIDERS: Admitting Provider Orthopaedic Surgery; PCP Nurse Practitioner Family; Visit Provider Orthopaedic Surgery
PROC: (CPT 63005; principal; 2023-11-01 11:20)
DX: M48.062 Spinal stenosis, lumbar region with neurogenic claudication (principal); I10 Essential (primary) hypertension; Z85.048 Personal history of other malignant neoplasm of rectum, rectosigmoid junction, and anus; E78.5 Hyperlipidemia, unspecified; F17.210 Nicotine dependence, cigarettes, uncomplicated
CPT/HCPCS: 63047; 63048 ×2; 72100; 76000; 97110; 97116; 97161; G0378; J0690; J1100; J1170; J1885; J2270; J2371; J2405; J2704; J2710; J3010; J3370; J3490; J7030; J7120

== ENCOUNTER → 2023-11-14 08:20 | Outpatient (BNVA) | payer MEDICARE, SELFPAY | PROVIDERS: PCP Nurse Practitioner Family; Visit Provider Orthopaedic Surgery | DX: Z98.890 Other specified postprocedural states (principal) | CPT/HCPCS: 99024 ==

== ENCOUNTER → 2023-12-10 09:59 | Outpatient (BNVA) | payer MEDICARE, SELFPAY | PROVIDERS: PCP Nurse Practitioner Family; Visit Provider Student in an Organized Health Care Education/Training Program | DX: M70.61 Trochanteric bursitis, right hip (principal) | CPT/HCPCS: 20610; 99213; J3301 ==

== ENCOUNTER → 2023-12-17 08:09 | Outpatient (BNVA) | payer MEDICARE, SELFPAY | PROVIDERS: PCP Nurse Practitioner Family; Visit Provider Orthopaedic Surgery | DX: Z98.890 Other specified postprocedural states (principal) | CPT/HCPCS: 99024 ==

== ENCOUNTER 2023-12-25 06:00 | Outpatient (RCR) | payer MEDICARE, SELFPAY | END 2024-01-24 23:59 | disposition home or self-care (01) | LOC: WPT 06:00 | PROVIDERS: PCP Nurse Practitioner Family; Visit Provider Orthopaedic Surgery | DX: Z98.890 Other specified postprocedural states (principal) | CPT/HCPCS: 97110; 97112; 97530 ==

== ENCOUNTER → 2024-01-09 11:13 | Outpatient (BNVA) | payer MEDICARE, SELFPAY | PROVIDERS: PCP Nurse Practitioner Family; Visit Provider Student in an Organized Health Care Education/Training Program | DX: M17.11 Unilateral primary osteoarthritis, right knee (principal) | CPT/HCPCS: 99213 ==

== ENCOUNTER 2024-01-25 06:00 | Outpatient (RCR) | payer MEDICARE, SELFPAY | END 2024-02-23 23:59 | disposition home or self-care (01) | LOC: WPT 06:00 | PROVIDERS: PCP Nurse Practitioner Family; Visit Provider Orthopaedic Surgery | DX: M54.50 Low back pain, unspecified (principal) | CPT/HCPCS: 97110; 97112; 97530 ==

== ENCOUNTER → 2024-01-28 08:22 | Outpatient (BNVA) | payer MEDICARE, SELFPAY | PROVIDERS: PCP Nurse Practitioner Family; Visit Provider Orthopaedic Surgery | DX: Z98.890 Other specified postprocedural states (principal) | CPT/HCPCS: 99024 ==

== ENCOUNTER → 2024-02-20 15:44 | Outpatient (BNVA) | payer MEDICARE, SELFPAY | PROVIDERS: PCP Nurse Practitioner Family; Visit Provider Orthopaedic Surgery | DX: Z98.890 Other specified postprocedural states (principal); M51.16 Intervertebral disc disorders with radiculopathy, lumbar region; M48.062 Spinal stenosis, lumbar region with neurogenic claudication; M54.9 Dorsalgia, unspecified | CPT/HCPCS: 72100; 99214 ==

== ENCOUNTER 2024-04-03 09:27 | Outpatient (CLI) | payer MEDICARE, SELFPAY ==
--- NOTE | 2024-04-03 09:30 | MR_ITS ---
WS: [id number] MRI LUMBAR SPINE NONCONTRAST TECHNIQUE: Sagittal T1, T2 and STIR imaging. Axial T1 and T2 imaging. CLINICAL INFORMATION: back pain COMPARISON: MRI 04/01/2023 FINDINGS: Mild lumbar curve. No acute compression. Prior decompressive laminectomy defects L3-L5. Small postope rative seroma or resolving hematoma in the laminectomy bed. Shallow central protrusion T11-T12. L1-L2: Mild disc bulge and osteophytic ridging. Mild central canal stenosis. Mild facet arthropathy. Foramen are patent. L2-L3: Bony ankylosis across the L2-3 disc space. Spinal canal is patent. Mild bony foraminal narrowi ng. Mild facet arthropathy. L3-L4: Mild disc bulging with osteophytic ridging. Laminectomy defects. Spinal canal has been decompr essed. Slight dorsal effacement of the thecal sac due to postoperative seroma/resolving hematoma in t he laminectomy bed. L4-L5: Laminectomy defects. Central canal stenosis has improved. Moderate compression of the thecal s ac with crowding of the cauda equina nerve roots due to dorsal seroma/resolving hematoma with mild bi lateral bony foraminal narrowing. Moderate facet arthropathy. L5-S1: Postoperative decompressive laminectomy. Mild residual narrowing of the thecal sac. Narrowing of the subarticular recess. Moderate facet arthropathy. Moderate bilateral bony foraminal narrowing. Partially visualized bilateral renal cysts. Mild central canal stenosis in the cervical spine director of industrial relations imaging. MR/MR lumbar spine wo con* [id number] IMPRESSION: 1. Laminectomy defects L3-L5 are new from previous. 2. Seroma or resolving hematoma in the laminectomy bed results in residual van rowing of the thecal sac described above. This is worse at L4-5 with moderate c ompression on the dorsal thecal sac and crowding of the cauda equina nerve root lets. 3. Mild residual narrowing of the thecal sac at L3-L4 and L5-S1. 4. Moderate bilateral L5-S1 foraminal narrowing.
== END 2024-04-03 09:28 | disposition home or self-care (01) ==
LOC: RAD 09:27
PROVIDERS: PCP Nurse Practitioner Family; Visit Provider Orthopaedic Surgery
DX: M48.08 Spinal stenosis, sacral and sacrococcygeal region (principal); M46.96 Unspecified inflammatory spondylopathy, lumbar region; M99.63 Osseous and subluxation stenosis of intervertebral foramina of lumbar region; M99.64 Osseous and subluxation stenosis of intervertebral foramina of sacral region
CPT/HCPCS: 72148

== ENCOUNTER → 2024-04-16 08:08 | Outpatient (BNVA) | payer MEDICARE, SELFPAY | PROVIDERS: PCP Nurse Practitioner Family; Visit Provider Orthopaedic Surgery | DX: M48.062 Spinal stenosis, lumbar region with neurogenic claudication | CPT/HCPCS: 99214 ==

== ENCOUNTER → 2024-04-21 11:06 | Outpatient (BNVA) | payer MEDICARE, SELFPAY | PROVIDERS: PCP Nurse Practitioner Family; Visit Provider Student in an Organized Health Care Education/Training Program | DX: M17.11 Unilateral primary osteoarthritis, right knee (principal) | CPT/HCPCS: 20610; 99213; J3301 ==

== ENCOUNTER → 2024-05-26 16:33 | Outpatient (BNVA) | payer MEDICARE, SELFPAY | PROVIDERS: PCP Nurse Practitioner Family; Visit Provider Nurse Practitioner Family | DX: M16.0 Bilateral primary osteoarthritis of hip (principal) | CPT/HCPCS: 73523 ==

== ENCOUNTER → 2024-06-30 13:05 | Outpatient (BNVA) | payer MEDICARE, SELFPAY | PROVIDERS: PCP Nurse Practitioner Family; Visit Provider Student in an Organized Health Care Education/Training Program | DX: M70.61 Trochanteric bursitis, right hip (principal); M70.62 Trochanteric bursitis, left hip | CPT/HCPCS: 20610; 99213; J3301; J3490 ==

== ENCOUNTER → 2024-07-28 10:05 | Outpatient (BNVA) | payer MEDICARE, SELFPAY | PROVIDERS: PCP Nurse Practitioner Family; Visit Provider Student in an Organized Health Care Education/Training Program | DX: M17.11 Unilateral primary osteoarthritis, right knee | CPT/HCPCS: 99214 ==

== ENCOUNTER → 2024-09-15 08:44 | Outpatient (BNVA) | payer MEDICARE, SELFPAY | PROVIDERS: PCP Nurse Practitioner Family; Visit Provider Student in an Organized Health Care Education/Training Program | DX: Z01.818 Encounter for other preprocedural examination (principal) | CPT/HCPCS: 80053; 81000; 81003; 85025 ==

== ENCOUNTER 2024-09-18 09:38 | Outpatient (CLI) | payer MEDICARE, SELFPAY ==
--- NOTE | 2024-09-18 10:00 | CT_ITS ---
WS: [id number] CT RIGHT knee, noncontrast HISTORY: DJD RIGHT KNEE TECHNIQUE: Protocol for [facility] total knee replacement has been obtained. This includes axial imaging th rough the RIGHT hip, RIGHT knee and RIGHT ankle. DLP: 945.50 mGy.cm COMPARISON: 09/03/2023 Hips: Mild bilateral narrowing of the hip joints with osteophytic acetabular ridging. No destructive bone lesions. Moderate plaque in the common iliac and femoral arteries. RIGHT knee: Moderate tricompartment osteoarthritis. Marginal osteophytes. No fracture. Small suprapat ellar joint effusion. Popliteal artery calcification. RIGHT ankle: Mild midfoot arthritis. CT/CT knee RT [facility] [id number] IMPRESSION: CT imaging provided for [facility] robotic total knee replacement.
== END 2024-09-18 09:39 | disposition home or self-care (01) ==
LOC: RAD 09:38
PROVIDERS: PCP Nurse Practitioner Family; Visit Provider Student in an Organized Health Care Education/Training Program
DX: M17.11 Unilateral primary osteoarthritis, right knee (principal); M25.851 Other specified joint disorders, right hip; M25.852 Other specified joint disorders, left hip; I70.8 Atherosclerosis of other arteries; M25.761 Osteophyte, right knee
CPT/HCPCS: 73700

== ENCOUNTER → 2024-09-22 07:49 | Outpatient (BNVA) | payer MEDICARE, SELFPAY | PROVIDERS: PCP Nurse Practitioner Family; Visit Provider Family Medicine | DX: Z01.818 Encounter for other preprocedural examination (principal); I49.8 Other specified cardiac arrhythmias | CPT/HCPCS: 93005 ==

== ENCOUNTER → 2024-09-24 08:14 | Outpatient (BNVA) | payer MEDICARE, SELFPAY | PROVIDERS: PCP Nurse Practitioner Family; Visit Provider Physician Assistant | DX: M17.11 Unilateral primary osteoarthritis, right knee (principal) | CPT/HCPCS: 99213 ==

== ENCOUNTER 2024-10-05 15:41 | Observation (INO) | payer MEDICARE, SELFPAY ==
[2024-10-05] VITALS (19 sets, daily range): BP systolic 126–154; BP diastolic 56–88; PULSE 58–95; RESP 11–18; TEMP 36.3–37.1; O2SAT 91–100
[2024-10-05] MEDS: sodium chloride 0.9% 1,000 ML 30 ML IV (11:59)
[2024-10-05] MEDS: acetaminophen 1,000 MG/100 ML PIGGYBACK 400 MG IV ×2 (12:05→20:15)
--- NOTE | 2024-10-05 12:05 | ANES.PREANE2 ---
Pre-Anesthetic Assessment Height/Weight: Height 5 ft 11 in Weight 144 lb Temp Pulse Resp BP Pulse Ox O2 Del Method 98.8 F 95 16 154/88 100 Room Air 10/05/24 11:42 10/05/24 11:42 10/05/24 11:42 10/05/24 11:42 10/05/24 11:42 10/05/24 11:42 Preop Diagnosis: Knee arthritis Operation Date: 10/05/24 13:20 Proposed Procedures p Gregorio Robot Total Knee Arthroplasty(Right) - Dave Frey, DO Was Beta Jonathan taken within 24 hours: N/A Was Clonidine taken within 24 hours: N/A Last intake: Intake Last Liquid Date 10/04/24 Last Liquid Time 20:00 Last Solid Date 10/04/24 Last Solid Time 20:00 Social Tobacco and No alcohol Exam alert, oriented x 3 and regular rate & rhythm Decreased breath sounds bilaterally Airway Submandibular: within normal limits Cervical ROM: within normal limits Mallampati: Class II Dentition: full Comments: Comments: Multiple missing teeth, denies any loose Anesthetic Plan ASA status: 3 Anesthesia: General and Regional (specify below) Other: No prior issues with anesthesia NPO since yesterday Patient has a history of COPD. Current smoker Hypertension on lisinopril, amlodipine and carvedilol Labs reviewed 09/15/2024 and acceptable for procedure today Patient recently had back surgery and does not want spinal anesthetic today EKG sinus rhythm Plan for general anesthesia with post induction nerve block Medications/Allergies Home Medications ?Medication ?Instructions ?Recorded ?Confirmed ?Last Taken ?Type cholecalciferol (vitamin D3) 125 125 mcg PO QAM 02/03/22 10/05/24 10/04/24 History mcg (5,000 unit) tablet (Vitamin D3) mecobalamin-levomefolate 1 tab PO .every other day 30 days 08/29/23 10/05/24 10/04/24 Rx calcium-pyridoxal phos 2 mg-3 #12 tabs mg-35 mg tablet ([id number]) betamethasone dipropionate 0.05 % 1 applic topical DAILY PRN skin 03/04/24 10/05/24 Unknown Rx topical cream irritation 14 days #15 grams lisinopril 20 mg tablet 20 mg PO DAILY #90 tabs 03/04/24 10/05/24 10/04/24 Rx lovastatin 10 mg tablet 10 mg PO BEDTIME #90 tabs 03/04/24 10/05/24 10/04/24 Rx celecoxib 100 mg capsule (Celebrex) 100 mg PO BID #60 caps 05/26/24 10/05/24 10/04/24 Rx tramadol 50 mg tablet 100 mg (2 x 50 mg) PO TID PRN pain 09/10/24 10/05/24 Unknown Rx #120 tabs amlodipine 10 mg tablet 10 mg PO DAILY #90 tabs 09/22/24 10/05/24 10/04/24 Rx albuterol sulfate 90 mcg/actuation 90 mcg inhalation QID 10/01/24 10/05/24 Unknown History aerosol inhaler carvedilol 6.25 mg tablet 6.25 mg PO BID 10/01/24 10/05/24 10/05/24 History pentoxifylline 400 mg 400 mg PO TID 10/01/24 10/05/24 10/04/24 History tablet,extended release tamsulosin 0.4 mg capsule 0.4 mg PO DAILY 10/01/24 10/05/24 10/04/24 History Allergies Allergy/AdvReac Type Severity Reaction Status Date / Time No Known Allergies Allergy Verified 10/01/24 11:51 [facility] [place] Anesthesia Medical History Medicare annual wellness visit, subsequent Chronic pain BPH associated with nocturia Dermatitis Insomnia Hypertension Arthritis Vitamin D deficiency Back Pain Rectal cancer Environmental and seasonal allergies Irritable bowel syndrome (IBS) Chronic constipation Anemia Osteoporosis Anxiety Vitamin B 12 deficiency Hyperlipidemia Surgical History History of colon surgery (05/2015) Rectosigmoid segmental resection with appendectomy History of colostomy reversal History of knee replacement (2012) Left total knee replacement History of hip surgery Social History Smoking and tobacco/nicotine status: current every day tobacco/nicotine user Alcohol intake: never Marital status: Current occupational status: retired Data Anesthesia 10/05/24 10:59 10/05/24 10:59 Cardiac Studies: No Data to Display
--- NOTE | 2024-10-05 12:21 | W.PM.OPSUD ---
Surgery/Procedure H&P Update DATE OF PROCEDURE: October 05, 2024 DATE H&P PERFORMED: 09/24/24 H&P UPDATE INFORMATION: I have reviewed H&P completed within last 30 days, I have examined patient prior to procedure and No changes to prior documentation PREOP DIAGNOSIS: Right knee DJD PRIMARY INDICATION FOR PROCEDURE: Right knee DJD PLANNED PROCEDURE: Operation Date: 10/05/24 13:20 Proposed Procedures p Gregorio Robot Total Knee Arthroplasty(Right) - Dave Frey DO
[2024-10-05 12:23] LABS: Basophils # 0.1 10^3/uL (0.0-0.1); Eosinophils # 0.2 10^3/uL (0.0-0.8); Eosinophils % 2.6 %; Hematocrit 34.4 % (37-53); Lymphocytes % 15.9 %; Mean Corpuscular HGB Conc 33.1 g/dL (30-55); Mean Corpuscular Hemoglobin 34.4 pg (27-33); Mean Corpuscular Volume 103.9 fl (82-101); Mean Platelet Volume 9.3 fL (7.4-10.4); Monocytes # 0.6 10^3/uL (0.2-0.9); Monocytes % 10.6 %; Neutrophils # 4.19 10^3/uL (1.8-7.7); Neutrophils % 69.2 %; Nucleated Red Blood Cells % 0 %; Platelet Count 205 10^3/cmm (157-399); Red Blood Count 3.31 10^6/uL (3.85-5.65); White Blood Count 6.05 10^3/uL (3.29-11.43)
[2024-10-05 12:41] LABS: Anion Gap 16.4 (5-19); Blood Urea Nitrogen 26 mg/dL (8-23); Calcium 9.5 mg/dL (8.5-10.5); Carbon Dioxide 23 mmol/L (22-29); Chloride 108 mmol/L (98-107); Creatinine Clr Calc Pharmacy 54.0203; Glucose 96 mg/dL (65-115); Osmolality Calculated 299 mOsm/kg (285-295); Potassium 5.4 mmol/L (3.5-5.1); Sodium 142 mmol/L (136-145)
[2024-10-05] MEDS: ceFAZolin 2,000 MG in sodium chloride 0.9% (plus) 50 ML 100 MG IV ×2 (12:50→20:16)
--- NOTE | 2024-10-05 13:11 | ANES.PROC ---
Anesthesia Procedures Procedure/Date: 10/05/24 Nerve Block ^: Nerve Block 1: Main Anesthesia: general anesthesia Time Out Performed: Yes Consent: requested by attending/covering physician and from patient Nerve block location: adductor canal Anesthesia monitors applied: pulse oximetry, EKG, BP cuff and oxygen Nerve block position: supine Anesthetic Used: ropivicaine 0.5% Amount of anesthesia used (mL): 15 Ultrasound used to: recognize landmarks Nerve Stimulator Used?: No Interscalene/Femoral BLK: other needle (pjunk 4inch) Injection: neg aspiration of heme Patient Tolerated Procedure: well Complications: none
[2024-10-05] MEDS: tranexamic acid 1,000 mg/10mL SDV 1000 MG IV (13:25)
[2024-10-05] MEDS: ketorolac 30 mg/mL INJ XX (13:49)
[2024-10-05] MEDS: ROPivacaine 0.2% Premix 100 mL 200 MG INTRA-ARTI (13:49)
[2024-10-05] MEDS: tranexamic acid 1,000 mg/10mL SDV 1000 MG XX (13:49)
[2024-10-05] MEDS: EPINEPHrine 1 mg/mL INJ XX (13:49)
[2024-10-05] MEDS: VANCOMYCIN ADD-Vantage 1,000 MG VIAL 1000 MG XX (14:17)
--- NOTE | 2024-10-05 14:42 | W.PM.BPON ---
Date of Procedure: 10/05/2024 Surgeon: Dave Frey DO Partner Management Consultant(s): Stephan Frey PA-C Procedure(s) performed: Right total knee arthroplasty?Gregorio robotic assisted Findings of the procedure(s): Patient found to have severe right knee degenerative joint disease underwent procedure as planned without issues or complications. Taken back to PACU stable condition. Estimated blood loss: 25 mL Specimen(s) removed: Tibia femur and patellar bone cuts removed Post-operative diagnosis: Right knee DJD
--- NOTE | 2024-10-05 14:43 | P.OP_ITS ---
Operative Report Date of procedure: October 05, 2024 Surgeon: Dave Frey DO Technical Support 1 Software Engineer: Stephan Frey PA-C: PA was necessary for assistance in this case with leg positioning retraction and protection of neurovascular structures as well as assistance in implantation wound closure and dressing application. Procedure: Preoperative diagnosis: Right knee degenerative joint disease Post-op diagnosis: Same Procedure done: Right total knee arthroplasty, cemented?robotic assisted Gregorio Implants: Scotty triathlon size 6 femur CR cemented?Right Lynn triathlon size?5 tibia universal baseplate cemented Lynn triathlon symmetric patella size 33 mm Scotty triathlon polyethylene 10mm Surgeon: Dave Frey DO Estimated blood?loss: 25 mL Tourniquet 59minutes IV fluids: 1000 mL Urine output: 350 mL Complications: None Condition: stable Disposition: floor Brief History: Patient is a 79-year-old male with with chronic?Right knee degenerative joint disease.? Patient has been worked up in the outpatient setting in the orthopedic office at this point time through shared decision making given? [id number] arthritis as well as failed conservative treatment, and pt would?like to proceed with a?Right total knee arthroplasty.? Through shared decision making elected to proceed with surgical intervention for?Right total knee arthroplasty Gregorio whitmore tic assisted.? We talked about continued conservative treatment and surgical intervention as far as the risk benefits complications alternatives surgical and nonsurgical treatment options.? At this point time understanding patient risks with surgery he agrees to proceed with surgical intervention.? Once again? risk with surgery include but are not?limited to make it better make it worse blood clot, heart attack, stroke, on the table, infection, injury to nerves or vessels, persistent pain, arthrofibrosis, implant failure.? Understanding these risks patient agrees to proceed with surgical intervention consent was obtained.? All questions answered. Procedure: Patient was seen and evaluated in the preoperative holding area.? Consent was reviewed and signed with patient with plan for?Right total knee arthroplasty.? All questions answered.? Correct extremity marked.? Patient seen and evaluated by the anesthesia department and once cleared for surgery was taken back to the operative suite.? Patient was placed into a supine position on the OR table.? All bony prominences were well-padded.? Patient was appropriately secured to the bed.? Patient underwent anesthesia per the anesthesia department.? Patient received spinal anesthesia and? Byrd catheter was placed.? A nonsterile tourniquet was applied to the?Right thigh.? At this point in time a final timeout performed.? Patient received appropriate preoperative antibiotics and TXA. Next the?Right?lower extremity was then prepped and draped in standard orthopedic fashion. Esmarch tourniquet was used exsanguinate the?Right?lower extremity.? Tourniquet was insufflated to 250 mmHg. A standard anterior incision was made over midline of the knee.? Sharp scalpel excision through skin and subcutaneous tissue full-thickness skin flaps were made.? Fascia was elevated off of the extensor retinaculum was stable with medial parapatellar arthrotomy was then made.? The performed standard sequential releases..? Immediately on entry into the joint patient was found to have severe eburnated bone and tricompartmental arthritic changes noted.? With significant osteophyte formation.? Next the the patella was then stuffed and the knee was then flexed.?? Patti was placed superiorly around the anterior aspect of the femur this was freed of synovium and I subsequently then placed by 2 femur pins to establish my femur arrays for the Gregorio robot.? These were then placed bicortically and? femur array was then appropriately secured with appropriate visualization.? Next attention was turned towards the tibial rays.? These were then drilled sequentially bicortically in parallel fashion and intraincisional.? I then placed my guide as well as my tibial array on in place.? This was appropriately secured and had excellent visualization with the Gregorio robot.? Next the tibial checkpoint as well as femur checkpoint were then placed.? At this point time I then subsequently established my head center as well as my medial?lateral malleoli as well as my checkpoints.? Next utilizing standard Gregorio technology I then mapped out the appropriate points and confirmation points around the femur as well as the tibia in standard fashion.? Once this was then done I then removed all osteophytes in preparation for dynamic testing.? All osteophytes were removed as well as I removed the ACL and the PCL was excised due to its significant tearing and degeneration noted.? At this point time the knee was brought into full extension and we performed our standard evaluation of our gap balancing stressing his?ligaments and extension as well as flexion appropriate adjustments were made to have appropriate gap balancing in both flexion and extension.? This plan for final cuts. Patient had severe varus deformity underwent correction of deformity accommodation to patient's ligamentous balancing. We get a preoperative plan evaluating our implants which was a size 6 femur and a size 5 tibia.? Next we brought in the Gregorio robot and sequentially made our femur cuts.? All excess bony cuts were then removed.? Finally we made our tibial cut.? Once this was done a standard PCL retractor was then placed into this position I excised the medial and?lateral meniscus.? The tibial cut was then subsequently removed all excess bony debris was removed.? I then utilized a?[employer] and remove the posterior osteophytes.? At this point time sized the tibia and confirmed this was a size 5.? I utilized our blunt probe to establish rotation of tibial implant.? Once this was done I then placed my tibia size 5 trial in appropriate position and then subsequently placed tibial pins to hold this into place, then trialed up to a size 10 mm poly as well as a size 6 femur which was appropriately impacted in place knee was then subsequently brought into extension. Trials were then assessed,? this was stable with varus valgus stress in extension as well as had symmetrical translation when brought into flexion demonstrating symmetrical gaps. I had excellent balance gaps in flexion and extension with varus and valgus stresses.? At this point I was satisfied with these implants these were then verified and opened on the back table size 5 ti daxa, size 6 femur, 10 mm poly thickness.? We did confirm appropriate gap balancing and stresses as well as alignment utilizing? Gregorio and were satisfied with this plan.? ?At this point time with my trials in place I then towel clip the patella everted this made appropriate measurements subsequently utilizing freehand technique performed by patellar resurfacing this was confirmed to be appropriate resection and subsequently sized to be a 33 mm symmetric.? My drill peg guides were then clamped and appropriate position and appropriate position in the patella for appropriate tracking and parallel with the joint.? Pegs were drilled trial implant was placed and the knee was then subsequently ranged and found to have excellent patellar tracking.? Femur pegs were then drilled.? checkpoints as well as guidepins and arrays were removed and appropriate counts made. Satisfied with our tibial placement rotation I then utilized the keel punch and prepped the tibia.? At this point time all of our trial implants were removed.? The wound bed? was thoroughly irrigated and dried and prepped for cementation.? Cement was mixed on the back table.? Once cement was ready this was then covered onto the tibia and the tibial baseplate was then impacted and all excess cement was removed.? Next the polyethylene was then impacted into place on the tibial baseplate.? Next cement was placed onto the femur as well as under the femur implants and impacted in to place and all excess cement was extruded and removed.? Knee was taken into full extension? to clear all excess cement was removed.? Warm saline was placed over the joint.? I then towel clip patella and dried for cementation. cemented the patella into place.? This was all clamped and the cement was allowed to cure.? Thorough irrigation performed with pulse?lavage.? I then placed my periarticular injection while the cement was curing.? Once cured the knee was taken through range of motion and had excellent stability and gaps were balanced in flexion and extension.? Tourniquet was then deflated. hemostasis satisfactory with electrocautery.? Vancomycin powder was placed in wound bed for antibiotic infection prophylaxis. Next I then subsequ ently closed the capsule with Ethibond suture as well as a running strata fix suture.? Knee was then taken through range of motion 20 times.? Next the skin was then closed in?layered fashion of running stratifix sutures of deep and subcutenous tissue and skin.? ?closed in flexion with denise over the skin.? Incision was covered with tee incisional VAC dressing, with ABDs soft roll and Dino wrap.? Patient was then awakened from anesthesia and taken to PACU in stable condition. Disposition: Patient taken to PACU in stable condition will be admitted to the floor for pain control PT/OT weight-bear as tolerated?Right?lower extremity dressing changes as needed, DVT prophylaxis. Pain control. Patient will receive appropriate postoperative antibiotics. patient will be seen today by the internal medicine team for medical management.? Patient will follow up with the office in 2 weeks.? Patient understands agrees with current plan.? All questions answered.
--- NOTE | 2024-10-05 15:01 | XR_ITS ---
WS: [id number] XR knee RT 1-2V 72886 REASON FOR EXAM: s/p R TKA FINDINGS: Total right knee arthroplasty. The prosthetic components are are intact and in proper position and alignment. No focal bone abnormality. XR/XR knee RT 1-2V [id number] IMPRESSION: Total right knee arthroplasty without abnormality.
--- NOTE | 2024-10-05 15:01 | PM.PACU ---
PACU note Narrative: Patient is a 79-year-old male that just underwent a right total knee arthroplasty. Pt transferred to PACU in stable condition. Dressing is dry. pt is awake and alert. pt can wiggle toes and plantarflex and dorsiflex foot. pt able to perform straight leg raise, Femoral nerve intact. Distal pulses are palpable toes are warm and well-perfused. Cap refill is normal and under 2 seconds. Sensation to foot is intact. Pain is controlled. Exam: awake Disposition: admitted
--- NOTE | 2024-10-05 15:45 | ANE.PACU2 ---
Inpatient post-anesthesia follow up: Airway intact: Yes Vital signs: Temperature 98.7 F Pulse Rate 62 Respiratory Rate 17 Blood Pressure 146/72 Pulse Oximetry 95 Oxygen Delivery Me thod Room Air Oxygen Flow Rate Fraction of Inspir ed Oxygen Hydration adequate: Yes Nausea and vomiting: No Pain level: 1 Mental status: Baseline
[2024-10-05] MEDS: chlorhexidine gluconate 0.12% Btl 473 mL 30 ML MUCOUS MEM ×2 (16:44→20:15)
[2024-10-05] MEDS: lactated ringers 1,000 ML 75 ML IV (16:44)
[2024-10-05] MEDS: HYDROMORPHONE HCL 0.5 MG/0.5 ML INJ IVP (16:44)
--- NOTE | 2024-10-05 17:25 | PM.CONSULT ---
Providers/Reason For Consult Consulting Physician/Specialty*: Hospitalist Reason for Consult*: Med Managemnt Attending Physician: Dave Frey DO Primary Care Provider: DREW Harper History of Present Illness History of Present Illness 79-year-old with a past medical history of colon cancer status post chemo, radiation, and surgery (currently in remission), hypertension, hyperlipidemia, irritable bowel syndrome, chronic constipation, enlarged prostate on Flomax, and COPD presents for post-operative care following a right total knee arthroplasty for severe right knee degenerative joint disease. The surgery was performed by Dr. Frey and went well without complications. Noted to have a history of taking MiraLAX for constipation, as well as Lactulose to regulate bowel movements. Reports improved overall health in recent years. Initial post-operative evaluation reveals: - Vital Signs: Blood pressure 130/60, heart rate 67, respiratory rate 15, temperature 98.1?F, not requiring supplemental oxygen. - Laboratory Findings: Potassium elevated at 5.4, creatinine 1.1, sodium 142, chloride 108, bicarbonate 23, BUN 26. All other labs within normal limits. Currently receiving IV fluids at 75 mL/hour. Pain is well-controlled. Denies any acute complaints or concerns at this time. Review of Systems Narrative: 14 systems reviewed found to be negative other than pertinent findings noted in HPI Medications/Allergies Home Medications ?Medication ?Instructions ?Recorded ?Confirmed ?Last Taken ?Type cholecalciferol (vitamin D3) 125 125 mcg PO QAM 02/03/22 10/05/24 10/04/24 History mcg (5,000 unit) tablet (Vitamin D3) mecobalamin-levomefolate 1 tab PO .every other day 30 days 08/29/23 10/05/24 10/04/24 Rx calcium-pyridoxal phos 2 mg-3 #12 tabs mg-35 mg tablet ([id number]) betamethasone dipropionate 0.05 % 1 applic topical DAILY PRN skin 03/04/24 10/05/24 Unknown Rx topical cream irritation 14 days #15 grams lisinopril 20 mg tablet 20 mg PO DAILY #90 tabs 03/04/24 10/05/24 10/04/24 Rx lovastatin 10 mg tablet 10 mg PO BEDTIME #90 tabs 03/04/24 10/05/24 10/04/24 Rx celecoxib 100 mg capsule (Celebrex) 100 mg PO BID #60 caps 05/26/24 10/05/24 10/04/24 Rx tramadol 50 mg tablet 100 mg (2 x 50 mg) PO TID PRN pain 09/10/24 10/05/24 Unknown Rx #120 tabs amlodipine 10 mg tablet 10 mg PO DAILY #90 tabs 09/22/24 10/05/24 10/04/24 Rx albuterol sulfate 90 mcg/actuation 90 mcg inhalation QID 10/01/24 10/05/24 Unknown History aerosol inhaler carvedilol 6.25 mg tablet 6.25 mg PO BID 10/01/24 10/05/24 10/05/24 History pentoxifylline 400 mg 400 mg PO TID 10/01/24 10/05/24 10/04/24 History tablet,extended release tamsulosin 0.4 mg capsule 0.4 mg PO DAILY 10/01/24 10/05/24 10/04/24 History Allergies Allergy/AdvReac Type Severity Reaction Status Date / Time No Known Allergies Allergy Verified 10/01/24 11:51 Current Medications Generic Name Dose Route Start Last Admin Trade Name Freq PRN Reason Stop Dose Admin Chlorhexidine Gluconate 30 ml 10/05/24 17:00 10/05/24 16:44 Chlorhexidine Gluconate 0.12% Btl 473 Ml MUCOUS MEM 30 ml QID HILARIO Administration Hydromorphone HCl 0.5 mg 10/05/24 16:21 10/05/24 16:44 Hydromorphone Hcl 0.5 Mg/0.5 Ml Inj IVP 0.5 mg Q4H PRN Administration BREAKTHROUGH PAIN Lactated Ringer's 1,000 mls @ 75 mls/hr 10/05/24 16:21 10/05/24 16:44 Lactated Ringers IV 75 mls/hr .[id number] HILARIO Administration PFSH Acute PFSH: Medical History Medicare annual wellness visit, subsequent Chronic pain BPH associated with nocturia Dermatitis Insomnia Hypertension Arthritis Vitamin D deficiency Back Pain Rectal cancer Environmental and seasonal allergies Irritable bowel syndrome (IBS) Chronic constipation Anemia Osteoporosis Anxiety Vitamin B 12 deficiency Hyperlipidemia Surgical History History of colon surgery (05/2015) Rectosigmoid segmental resection with appendectomy History of colostomy reversal History of knee replacement (2012) Left total knee replacement History of hip surgery Social History Smoking and tobacco/nicotine status: current every day tobacco/nicotine user Alcohol intake: never Marital status: Current occupational status: retired Vitals/I&O/Wt Last Vital Signs Temp 98.1 F 10/05/24 15:45 Pulse 67 10/05/24 15:45 Resp 15 10/05/24 15:45 BP 130/60 10/05/24 15:45 Pulse Ox 94 10/05/24 15:45 O2 Del Method Room Air 10/05/24 15:45 10/05/24 10/05/24 10/05/24 06:59 14:59 22:59 Intake Total 1150 / 1150 1600 / 2750 Output Total 375 / 375 Balance 775 / 775 1600 / 2375 Weight last 48 hrs Weight 65.317 kg Physical Exam Narrative: Vital Signs: BP 130/60, HR 67, RR 15, Temp 98.1?F, SpO2 98% on room air General: Alert, oriented, and in no acute distress HEENT: Normocephalic, atraumatic, PERRL, EOMI, no scleral icterus or conjunctival pallor Cardiovascular: Regular rate and rhythm, no murmurs, rubs, or gallops Respiratory: Clear to auscultation bilaterally, no wheezes, rales, or rhonchi Abdomen: Soft, non-tender, non-distended, normal bowel sounds Extremities: Right knee in surgical dressing, no erythema or drainage Urinary Catheter Management: Byrd: Cath Placed During This Visit: yes Urinary Catheter Date of Insertion: 10/05/24 Urinary Catheter Time of Insertion: 13:05 Data 10/05/24 10:59 10/05/24 10:59 A&P Assessment and plan (1) Hyperkalemia: (2) Hypertension: Qualifiers: Hypertension type: essential hypertension Qualified Code(s): I10 - Essential (primary) hypertension Plan Right Total Knee Arthroplasty - Underwent uncomplicated right total knee arthroplasty for severe degenerative joint disease. - Continue post-operative monitoring, pain control, and early mobilization as tolerated. - Start Eliquis for DVT prophylaxis tomorrow. - Physical therapy to initiate range of motion exercises and gait training. Hyperkalemia - Potassium elevated at 5.4, in setting of lisinopril use. - Will recheck potassium now - Hold lisinopril until potassium normalizes, then consider restarting at a lower dose. - If still up will order [facility] Hypertension - Blood pressure well-controlled at 130/60 currently - Continue to monitor blood pressure closely in the post-operative period. - Restart, Norvasc 10 mg daily and Coreg 6.25 mg twice daily and consider resuming lisinopril once potassium normalizes. Hyperlipidemia - Continue Statin Chronic Constipation - Encourage adequate hydration, fiber intake, and mobilization to promote regular bowel movements. - Consider adding a stool softener if needed. Benign Prostatic Hyperplasia - Continue Flomax 0.4 mg daily for urinary symptoms. COPD - Noted to use inhalers intermittently for COPD exacerbations. - Requested Mucinex 600 mg in the morning as needed for congestion and cough. - Encourage incentive spirometry and deep breathing exercises to prevent atelectasis. - Monitor oxygen saturation and respiratory status closely. History of Colon Cancer - History of colon cancer treated with chemo, radiation, and surgery, currently in remission. Peripheral Vascular Disease - Noted to take pentoxifylline 400 mg three times daily for leg circulation. - Hold for now PDMP PDMP Reviewed: Not Reviewed Consult Attestations Medical Necessity Statement: As per primary team Coding Level of Care Code Acute Code for Chg Fwd Diagnoses Hyperkalemia E87.5 Essential hypertension I10 Hypertension type: essential hypertension
[2024-10-05] MEDS: iron polysaccharide complex 150 mg Capsule PO (17:55)
[2024-10-05] MEDS: carvedilol 3.125 mg Tablet 6.25 MG PO (17:56)
[2024-10-05] MEDS: calcium carb-vit d 600mg/400unit 1 Tablet 1 EACH PO (17:56)
[2024-10-05] MEDS: mupirocin oint 22 gm 1 APPLIC NASAL (17:57)
[2024-10-05] MEDS: ketorolac 30 mg/mL INJ 15 MG IVP (18:21)
[2024-10-05 20:45] LABS: Potassium 4.9 mmol/L (3.5-5.1)
[2024-10-05] MEDS: oxyCODONE 5 mg IR Tab/Cap PO (20:54)
[2024-10-05] MEDS: tranexamic acid 1,000 MG/100 ML PREMIX 600 MG IV (20:58)
[2024-10-05] MEDS: TRAMadol 50 mg Tablet PO (22:32)
[2024-10-06] MEDS: ketorolac 30 mg/mL INJ 15 MG IVP (01:11)
[2024-10-06 04:00] VITALS: BP 133/71; PULSE 57; RESP 18; TEMP 36.5; O2SAT 95
[2024-10-06 04:55] VITALS: RESP 18
[2024-10-06] MEDS: oxyCODONE 5 mg IR Tab/Cap PO ×2 (04:55→11:44)
[2024-10-06] MEDS: ceFAZolin 2,000 MG in sodium chloride 0.9% (plus) 50 ML 100 MG IV ×2 (05:06→13:30)
[2024-10-06 05:15] LABS: Basophils % 0.5 %; Hematocrit 29.9 % (37-53); Lymphocytes # 0.8 10^3/uL (0.8-4.8); Lymphocytes % 13.4 %; Mean Corpuscular HGB Conc 32.4 g/dL (30-55); Mean Corpuscular Hemoglobin 33.7 pg (27-33); Mean Corpuscular Volume 103.8 fl (82-101); Mean Platelet Volume 9.2 fL (7.4-10.4); Monocytes # 0.6 10^3/uL (0.2-0.9); Monocytes % 10.2 %; Neutrophils # 4.74 10^3/uL (1.8-7.7); Neutrophils % 75.4 %; Nucleated Red Blood Cells % 0 %; Platelet Count 163 10^3/cmm (157-399); Red Blood Count 2.88 10^6/uL (3.85-5.65); Red Cell Distribution Width 13.8 % (12.1-15.1); White Blood Count 6.28 10^3/uL (3.29-11.43)
[2024-10-06] MEDS: acetaminophen 1,000 MG/100 ML PIGGYBACK 400 MG IV ×2 (05:20→11:44)
[2024-10-06 05:35] LABS: Anion Gap 17.7 (5-19); Blood Urea Nitrogen 24 mg/dL (8-23); Calcium 8.3 mg/dL (8.5-10.5); Carbon Dioxide 18 mmol/L (22-29); Chloride 104 mmol/L (98-107); Creatinine Clr Calc Pharmacy 45.7095; Glucose 106 mg/dL (65-115); Osmolality Calculated 284 mOsm/kg (285-295); Potassium 4.7 mmol/L (3.5-5.1); Sodium 135 mmol/L (136-145)
[2024-10-06] MEDS: chlorhexidine gluconate 0.12% Btl 473 mL 30 ML MUCOUS MEM (09:16)
[2024-10-06] MEDS: calcium carb-vit d 600mg/400unit 1 Tablet 1 EACH PO (09:17)
[2024-10-06] MEDS: docusate sodium 100 mg Capsule PO (09:17)
[2024-10-06] MEDS: iron polysaccharide complex 150 mg Capsule PO (09:17)
[2024-10-06] MEDS: carvedilol 3.125 mg Tablet 6.25 MG PO (09:17)
[2024-10-06] MEDS: apixaban 5 mg Tablet 2.5 MG PO (09:17)
[2024-10-06] MEDS: amlodipine 5 mg Tablet 10 MG PO (09:17)
[2024-10-06] MEDS: mupirocin oint 22 gm 1 APPLIC NASAL (09:17)
[2024-10-06] MEDS: multivitamin therapeutic Tablet 1 TAB PO (09:17)
[2024-10-06] MEDS: tamsulosin 0.4 mg Capsule PO (09:19)
[2024-10-06 09:28] VITALS: BP 142/65; PULSE 69; RESP 17; TEMP 36.6
[2024-10-06 11:44] VITALS: RESP 16
[2024-10-06] MEDS: lactated ringers 1,000 ML 75 ML IV (11:51)
--- NOTE | 2024-10-06 12:25 | P.DS_ITS ---
Discharge Providers Date of Admission: 10/05/24 15:41 Date of Discharge: October 06, 2024 Attending Provider at Admission: Dave Frey DO Attending Provider at Discharge: Dave Frey DO Consults: Hospitalist Primary Care Provider: DREW Harper Diagnoses at Discharge Discharge Diagnosis (1) Hyperkalemia: Status: Resolved (2) Hypertension: Status: Acute Qualifiers: Hypertension type: essential hypertension Qualified Code(s): I10 - Essential (primary) hypertension Reason for Visit Reason for Visit: Brief History: s/p R TKA kade robotic assisted Hospital Course Hospital Course Patient presented to the preoperative holding area with plan for [ right] total knee arthroplasty after patient has been worked up in the outpatient setting for failed conservative treatment of [ right] knee degenerative joint disease. Once cleared by anesthesia for surgery patient subsequently was taken back to the operative suite underwent anesthesia per anesthesia department and then subsequently underwent a [right ] total knee arthroplasty. Procedure was performed without any complications patient was taken to PACU in stable condition patient recovered well in PACU and then was admitted to the floor postoperatively internal medicine was consulted and on board for medical management and assistance with care. Patient received appropriate PT/OT, postoperative antibiotics, postoperative TXA, pain control, postoperative DVT prophylaxis. Elevation and ice. Patient encouraged for knee range of motion allowed weightbearing as tolerated to the operative lower extremity. Dressing was changed as needed, labs were monitored daily. Patient recovered well postoperatively and worked well and progressed well with therapy. It was determined on postoperative day [1 ] the patient was stable for discharge from an orthopedic standpoint and medicine. Patient was comfortable with discharge and plan was discharged home. Patient received appropriate discharge instructions as well as pain medication and DVT prophylaxis postoperatively. Given appropriate instructions for dressing management. Patient will follow-up with Dr. Frey/orthopedics in the office in 2 weeks. All questions answered. Understand if there is any issues questions or concerns and contact the office. Physical Exam Narrative: Right knee examination: Dressing on in place, clean dry and intact. No evidence of saturation. Patient has normal postoperative swelling and tenderness to palpation to the knee. Compartments are soft compressible,'s calf soft and nontender. Sensations intact to light touch distally. Distal pulses are palpable. Patient is able to wiggle toes as well as plantarflex and dorsiflex ankle. Urinary Catheter Management: Byrd: Cath Placed During This Visit: yes, but has since been removed by the nurse Reason for Continuing Indwelling Catheter: Decision to DC Catheter Urinary Catheter Date of Insertion: 10/05/24 Urinary Catheter Time of Insertion: 13:05 Date Urinary Catheter Removed: 10/06/24 Time Urinary Catheter Discontinued: 05:08 Discharge Data Studies Completed and Pending Completed Studies During Hospitalization Category Date Time Status XR knee RT 1-2V [id number] Routine Exams 10/05/24 15:01 Completed Radiology Impressions Knee X-Ray 10/05/24 15:01 IMPRESSION: Total right knee arthroplasty without abnormality. Laboratory Results WBC 6.28 10^3/uL (3.29-11.43) 10/06/24 05:05 RBC 2.88 10^6/uL (3.85-5.65) L 10/06/24 05:05 Hgb 9.70 g/dL (11.27-16.99) L 10/06/24 05:05 Hct 29.9 % (37-53) L 10/06/24 05:05 MCV 103.8 fl (82-101) H 10/06/24 05:05 MCH 33.7 pg (27-33) H 10/06/24 05:05 MCHC 32.4 g/dL (30-55) 10/06/24 05:05 RDW 13.8 % (12.1-15.1) 10/06/24 05:05 Plt Count 163 10^3/cmm (157-399) 10/06/24 05:05 MPV 9.2 fL (7.4-10.4) 10/06/24 05:05 Neut % (Auto) 75.4 % 10/06/24 05:05 Lymph % (Auto) 13.4 % 10/06/24 05:05 [place] % (Auto) 10.2 % 10/06/24 05:05 Eos % (Auto) 0.0 % 10/06/24 05:05 Baso % (Auto) 0.5 % 10/06/24 05:05 Neut # (Auto) 4.74 10^3/uL (1.8-7.7) 10/06/24 05:05 Lymph # (Auto) 0.8 10^3/uL (0.8-4.8) 10/06/24 05:05 [place] # (Auto) 0.6 10^3/uL (0.2-0.9) 10/06/24 05:05 Eos # (Auto) 0.0 10^3/uL (0.0-0.8) 10/06/24 05:05 Baso # (Auto) 0.0 10^3/uL (0.0-0.1) 10/06/24 05:05 Nucleated RBC % (auto) 0 % 10/06/24 05:05 Nucleated RBCs # 0.0 /100WBC 10/06/24 05:05 Sodium 135 mmol/L (136-145) L 10/06/24 05:05 Potassium 4.7 mmol/L (3.5-5.1) 10/06/24 05:05 Chloride 104 mmol/L (98-107) 10/06/24 05:05 Carbon Dioxide 18 mmol/L (22-29) L 10/06/24 05:05 Anion Gap 17.7 (5-19) 10/06/24 05:05 BUN 24 mg/dL (8-23) H 10/06/24 05:05 Creatinine 1.3 mg/dL (0.7-1.2) H 10/06/24 05:05 GFR Calculation Not Reportable 10/06/24 05:05 Glucose 106 mg/dL (65-115) 10/06/24 05:05 Calculated Osmolality 284 mOsm/kg (285-295) L 10/06/24 05:05 Calcium 8.3 mg/dL (8.5-10.5) L 10/06/24 05:05 Blood Type A Positive 10/05/24 10:59 Rho(D) Type Rh positive 10/05/24 10:59 Antibody Screen Negative 10/05/24 10:59 Vitals Last Vital Signs Temp 98.7 F 10/06/24 14:40 Pulse 62 10/06/24 14:40 Resp 17 10/06/24 14:40 BP 146/72 10/06/24 14:40 Pulse Ox 95 10/06/24 14:40 O2 Del Method Room Air 10/06/24 14:19 Discharge Plan Discharge Patient Disposition: Home Health Service Condition: Stable Prescriptions: New Eliquis 2.5 mg tablet 2.5 mg PO BID 14 Days Qty: 28 0RF oxycodone 5 mg tablet 5 mg PO Q6H PRN (Reason: pain postop) 7 Days Qty: 28 0RF Continued betamethasone dipropionate 0.05 % cream 1 applic topical DAILY PRN (Reason: skin irritation) 14 Days Qty: 15 0RF lisinopril 20 mg tablet 20 mg PO DAILY Qty: 90 2RF Rx Instructions: TAKE 1 TABLET BY MOUTH EVERY DAY C-[id number]-[id number]-B12 3-35-2 mg tablet 1 tab PO .every other day 30 Days Qty: 12 5RF amlodipine 10 mg tablet 10 mg PO DAILY Qty: 90 1RF Rx Instructions: TAKE 1 TABLET BY MOUTH EVERY DAY cholecalciferol (vitamin D3) [Vitamin D3] 125 mcg (5,000 unit) Tablet 125 mcg PO QAM albuterol sulfate 90 mcg/actuation HFA aerosol inhaler 90 mcg inhalation QID Rx Instructions: USE 2 INHALATIONS BY MOUTH EVERY 6 HOURS NEEDED FOR SHORTNESS OF BREATH OR WHEEZING carvedilol 6.25 mg tablet 6.25 mg PO BID Rx Instructions: TAKE 1 TABLET BY MOUTH TWICE DAILY pentoxifylline 400 mg tablet extended release 400 mg PO TID Rx Instructions: TAKE ONE TABLET BY MOUTH THREE TIMES DAILY tamsulosin 0.4 mg capsule 0.4 mg PO DAILY Rx Instructions: TAKE 1 CAPSULE BY MOUTH EVERY DAY Discontinued celecoxib [Celebrex] 100 mg capsule 100 mg PO BID Qty: 60 3RF tramadol 50 mg tablet 100 mg PO TID PRN (Reason: pain) Qty: 120 2RF No Action lovastatin 10 mg tablet See Rx Instructions .ROUTE .COMPLEX Qty: 90 1RF Dose Instruction: TAKE 1 TABLET BY MOUTH ONCE EVERY NIGHT AT BEDTIME Rx Instructions: TAKE 1 TABLET BY MOUTH ONCE EVERY NIGHT AT BEDTIME Discharge Orders: Discharge Order (Routine); Ordered 10/06/24 Ordered By: Dave Frey Referrals: [facility] [Outside] Dave Frey DO [Physician] - Discharge Diet: Regular Discharge Activity: Limit activity as instructed Patient Instructions: Acute Wound Care (DC), Opioid Safety, Post Anesthesia Care Activity Restrictions/Additional Instructions: Orthopedic discharge instructions Anna Dressing--Keep dressing on and dry. After 3 days you can remove Dino bandage dressing. If you plan to shower the peel and stick white bandage directly over the incision is waterproof and you should be able to shower over this, make sure you disconnect battery pack when showering. Anna dressing will stay on until follow up appt in 2 weeks. The battery pack for the dressing will at 5-7 days. Battery pack can be removed and discarded once batteries . Patient may weight-bear as tolerate to the operative extremity Utilize walker as needed Encourage knee range of motion Ice and elevate as needed for pain and swelling Take pain medication as prescribed Take antinausea medication as needed Pain medication can cause constipation. take [id number] stool softeners and or MiraLAX. Take prescribed Eliquis twice daily for the next 14 days for blood clot preven tion May supplement for pain with Tylenol omet-qql-fvanmod as needed(1000 mg every 8 hours-do not exceed more than 3000mg in 24-hour period) No baths or soaks Follow-up in the orthopedic office in 2 weeks Contact the office for any questions or concerns Discharge Attestations Time Spent in Discharge Care*: less than 30 min Quality Metrics Clinical Quality Measures [ No reported AMI, CVA or VTE this stay] Coding Level of Care Code Acute Code for Chg Fwd Diagnoses Hyperkalemia E87.5 Essential hypertension I10 Hypertension type: essential hypertension Time Spent (min) 20
[2024-10-06 14:19] VITALS: BP 146/72; PULSE 62; RESP 17; TEMP 37.1; O2SAT 95
[2024-10-06 14:40] VITALS: BP 146/72; PULSE 62; RESP 17; TEMP 37.1; O2SAT 95
== END 2024-10-06 14:40 | disposition home health service (06) ==
LOC: OBGYN 15:41
PROVIDERS: Hospitalist; Physician Assistant; Admitting Provider Student in an Organized Health Care Education/Training Program; PCP Nurse Practitioner Family; Visit Provider Student in an Organized Health Care Education/Training Program
PROC: 8E0Y0CZ Robotic Assisted Procedure of Lower Extremity, Open Approach (ICD-10-PCS; CPT 27447; principal; 2024-10-05 12:50)
DX: M17.11 Unilateral primary osteoarthritis, right knee (principal); K08.409 Partial loss of teeth, unspecified cause, unspecified class; I10 Essential (primary) hypertension; J44.9 Chronic obstructive pulmonary disease, unspecified; Z79.899 Other long term (current) drug therapy; M81.0 Age-related osteoporosis without current pathological fracture; Z96.652 Presence of left artificial knee joint; Z90.49 Acquired absence of other specified parts of digestive tract; Z85.048 Personal history of other malignant neoplasm of rectum, rectosigmoid junction, and anus; F17.200 Nicotine dependence, unspecified, uncomplicated; K58.1 Irritable bowel syndrome with constipation; Z85.038 Personal history of other malignant neoplasm of large intestine; K59.09 Other constipation; N40.0 Benign prostatic hyperplasia without lower urinary tract symptoms; I73.9 Peripheral vascular disease, unspecified; E87.5 Hyperkalemia
CPT/HCPCS: 27447; 36415; 51702; 73560; 80048; 84132; 85025; 86850; 86900; 97161; 97165; A4216; C1776; G0378; J0131; J0171; J0690; J1100; J1171; J1885; J2405; J2704; J2710; J2795; J3010; J3370; J3490; J7030; J7120

== ENCOUNTER → 2024-10-20 14:01 | Outpatient (BNVA) | payer MEDICARE, SELFPAY | PROVIDERS: PCP Nurse Practitioner Family; Visit Provider Physician Assistant | DX: M17.11 Unilateral primary osteoarthritis, right knee (principal); Z96.651 Presence of right artificial knee joint | CPT/HCPCS: 73560; 73565; 99024 ==

== ENCOUNTER 2024-11-24 06:00 | Outpatient (RCR) | payer MEDICARE, SELFPAY | END 2024-12-23 23:59 | disposition home or self-care (01) | LOC: WPT 06:00 | PROVIDERS: PCP Nurse Practitioner Family; Visit Provider Physician Assistant | DX: Z47.1 Aftercare following joint replacement surgery (principal); Z96.659 Presence of unspecified artificial knee joint | CPT/HCPCS: 97110; 97112; 97161; 97530 ==

== ENCOUNTER → 2024-12-01 14:13 | Outpatient (BNVA) | payer MEDICARE, SELFPAY | PROVIDERS: PCP Nurse Practitioner Family; Visit Provider Physician Assistant | DX: Z98.890 Other specified postprocedural states (principal); Z96.651 Presence of right artificial knee joint | CPT/HCPCS: 73560; 73565; 99024 ==

== ENCOUNTER 2024-12-24 05:00 | Outpatient (RCR) | payer MEDICARE, SELFPAY | END 2025-01-23 23:59 | disposition home or self-care (01) | LOC: WPT 05:00 | PROVIDERS: PCP Nurse Practitioner Family; Visit Provider Physician Assistant | DX: Z47.1 Aftercare following joint replacement surgery (principal); Z96.659 Presence of unspecified artificial knee joint | CPT/HCPCS: 97110; 97112; 97530 ==

== ENCOUNTER 2025-01-24 05:00 | Outpatient (RCR) | payer MEDICARE, SELFPAY | END 2025-02-22 23:59 | disposition home or self-care (01) | LOC: WPT 05:00 | PROVIDERS: PCP Nurse Practitioner Family; Visit Provider Physician Assistant | DX: Z47.1 Aftercare following joint replacement surgery (principal); Z96.652 Presence of left artificial knee joint | CPT/HCPCS: 97110; 97112; 97530 ==

== ENCOUNTER → 2025-01-29 09:47 | Outpatient (BNVA) | payer MEDICARE, SELFPAY | PROVIDERS: PCP Nurse Practitioner Family; Visit Provider Physician Assistant | DX: Z96.651 Presence of right artificial knee joint (principal) | CPT/HCPCS: 73560; 73565; 99213 ==

== ENCOUNTER 2025-02-23 06:30 | Outpatient (RCR) | payer MEDICARE, SELFPAY | END 2025-03-09 13:57 | disposition home or self-care (01) | LOC: WPT 06:30 | PROVIDERS: PCP Nurse Practitioner Family; Visit Provider Physician Assistant | DX: Z47.1 Aftercare following joint replacement surgery (principal); Z96.659 Presence of unspecified artificial knee joint | CPT/HCPCS: 97110; 97112; 97530 ==

== ENCOUNTER → 2025-06-25 11:14 | Outpatient (BNVA) | payer MEDICARE, SELFPAY | PROVIDERS: PCP Nurse Practitioner Family; Visit Provider Nurse Practitioner Family | DX: Z12.5 Encounter for screening for malignant neoplasm of prostate (principal); E55.9 Vitamin D deficiency, unspecified; I10 Essential (primary) hypertension; E78.5 Hyperlipidemia, unspecified; C20 Malignant neoplasm of rectum; R53.1 Weakness; E53.8 Deficiency of other specified B group vitamins; D64.9 Anemia, unspecified; Z79.899 Other long term (current) drug therapy | CPT/HCPCS: 80053; 80061; 81003; 82306; 82607; 82728; 82746; 83036; 83550; 84443; 85025; G0103 ==

== ENCOUNTER 2025-07-20 13:03 | Outpatient (RCR) | payer MEDICARE, SELFPAY | END 2025-07-25 23:59 | disposition home or self-care (01) | LOC: WPT 13:03 | PROVIDERS: PCP Nurse Practitioner Family; Visit Provider Nurse Practitioner Family | DX: R53.1 Weakness (principal) | CPT/HCPCS: 97110; 97112; 97162; 97530 ==

== ENCOUNTER 2025-08-17 13:58 | Outpatient (RCR) | payer MEDICARE, SELFPAY | END 2025-08-25 23:59 | disposition home or self-care (01) | LOC: WPT 13:58 | PROVIDERS: PCP Nurse Practitioner Family; Visit Provider Nurse Practitioner Family | DX: R53.1 Weakness (principal) | CPT/HCPCS: 97110; 97112; 97530 ==